=== PATIENT | female | born 1955 | race Two or more races ===

== ENCOUNTER 2016-08-22 11:34 | Inpatient (IN) | payer OTHER ==
[~2016-08-22] VITALS: Ht 157.5 cm; Wt 53.1 kg
--- NOTE | 2016-08-22 11:48 | NUR ---
SENT FROM [employer] FOR DIALYSIS CATHETER MALFUNCTION. PATIENT IS AAO2, APPEARS IN NO APPARENT DISTRESS,HD CATH IS COVERED WITH DD
--- NOTE | 2016-08-22 11:55 | NUR ---
PAGED DR PATTI SINGH
--- NOTE | 2016-08-22 11:57 | NUR ---
DR COLE ON THE PHONE WITH DR PATTI SINGH.
[2016-08-22 12:23] LABS: BASOPHILS # (AUTO) 0.1 /CMM (0.0-0.2); EOSINOPHILS # (AUTO) 0.3 /CMM (0.0-0.7); HEMATOCRIT 34 % (33-45); HEMOGLOBIN 10.9 g/dL (11.5-14.8); LYMPHOCYTES # (AUTO) 1.5 /CMM (0.8-4.8); LYMPHOCYTES % (AUTO) 18.1 % (20.0-44.0); MEAN CORPUSCULAR HEMOGLOBIN 26 PG (26.0-33.0); MEAN CORPUSCULAR HGB CONC 32 g/dl (31.0-36.0); MEAN CORPUSCULAR VOLUME 82 fL (82-100); MONOCYTES # (AUTO) 0.6 /CMM (0.1-1.30); MONOCYTES % (AUTO) 6.8 % (2.0-12.0); NEUTROPHILS # (AUTO) 6.1 /CMM (1.8-8.9); NEUTROPHILS % (AUTO) 70.1 % (43.0-81.0); PLATELET COUNT (AUTO) 294 /CMM (150-450); RDW COEFFICIENT OF VARIATION 16.9 (11.5-15.0); RED BLOOD CELL COUNT(AUTO) 4.13 MIL/uL (4.0-5.2); WHITE BLOOD COUNT (AUTO) 8.6 K/uL (4.3-11.0)
[2016-08-22 12:33] LABS: CALCIUM, SERUM 9.2 mg/dL (8.5-10.1); CREATININE 5.6 mg/dL (0.6-1.3); POTASSIUM 4.9 mmol/L (3.5-5.1)
[2016-08-22 13:04] LABS: INR 0.97 (0.87-1.13); PARTIAL THROMBOPLASTIN TIME < 20 SEC (23-34); PROTHROMBIN TIME 10.4 SECS (9.5-12.7)
[2016-08-22] MEDS ORDERED: CLON0.2T PO (13:16)
[2016-08-22] MEDS ORDERED: ASPI325T2 PO (13:16)
[2016-08-22] MEDS ORDERED: FURO40TA5 PO (13:16)
[2016-08-22] MEDS ORDERED: CLOP75TA2 PO (13:16)
[2016-08-22] MEDS ORDERED: CARV12.52 PO (13:16)
[2016-08-22] MEDS ORDERED: PENT400T2 PO (13:16)
[2016-08-22] MEDS ORDERED: ATOR40TA PO (13:16)
[2016-08-22] MEDS ORDERED: INSU100V7 SQ (13:16)
[2016-08-22] MEDS ORDERED: AMLO10TA2 PO (13:16)
[2016-08-22] MEDS ORDERED: NIFE10CA2 PO (13:16)
[2016-08-22] MEDS ORDERED: FERR-58 PO (13:16)
[2016-08-22] MEDS ORDERED: ERGO500047 PO (13:20)
--- NOTE | 2016-08-22 14:31 | NUR ---
REPORT GIVEN TO NURSE FERNANDES FOR JOO
--- NOTE | 2016-08-22 14:37 | NUR ---
PT TRASNPORTED TO 3W
[2016-08-22 14:50] VITALS: BP 147/77
--- NOTE | 2016-08-22 14:50 | NUR ---
RN INITIAL NOTE PATIENT RECEIVED FROM ER. NO SOB OR DISTRESS NOTED A THIS TIME. PATIENT DENIES PAIN. VITAL SIGNS CHECKED AND RECORDED. PATIENT ORIENTED TO ROOM AND CALL LIGHT. BELONGINGS LIST CHECKED. WILL CALL DR SINGH FOR ORDERS.
--- NOTE | 2016-08-22 15:07 | NUR ---
MS RN NOTES DR SINGH RELAYED VERBAL ORDERS VIA PHONE. HE ASKS TO CONTINUE ALL MEDS ACCEPT ASPIRIN AND PLAVIX. ALL ORDERS PLACED AND MED LIST FAXED TO PHARMACY.
[2016-08-22] MEDS ORDERED: DEXTROSE 50%-WATER 50 ML DISP.SYRIN IV PRN (15:30)
[2016-08-22 16:00] VITALS: BP 134/86
--- NOTE | 2016-08-22 17:16 | NUR ---
MS RN NOTES VERIFIED WITH MADHAVI THAT PHARMACY RECEIVED MED RECON.
[2016-08-22] MEDS: INSULIN REGULAR, HUMAN 100 UNIT/ML 3 ML VIAL SQ PRN ×2 (17:21→21:20)
[2016-08-22] MEDS: BLOOD SUGAR DIAGNOSTIC 1 EACH STRIP IN SCH ×2 (17:21→21:19)
--- NOTE | 2016-08-22 18:16 | NUR ---
MS RN CLOSING NOTES NO SIGNIFICANT CHANGES IN PATIENT CONDITION. PATIENT RESTING COMFORTABLY IN BED. NO SOB OR DISTRESS NOTED AT THIS TIME. PATIENT DENIES PAIN. BED IN A LOW POSITION, CALL LIGHT WITHIN PATIENT REACH. WILL ENDORSE FOR JOO.
--- NOTE | 2016-08-22 19:45 | NUR ---
MS RN NOTE RECEIVED PATIENT FROM DAY SHIFT, PATIENT IS ALERT AND ORIENTEDX4, AMBULATORY WITH ASSIST, SLEEPING COMFORTABLY ON BED AT THIS TIME. RIGHT UPPER ARM MIDLINE IS PATENT AND INTACT, HL ONLY. PATIENT DENIES RESPIRATORY DISTRESS OR PAIN AT THIS TIME. SRX2, BED IN LOW POSITION, CALL LIGHT WITHIN REACH, WILL CONTINUE TO MONITOR PATIENT.
[2016-08-22 20:00] VITALS: BP 127/64
[2016-08-22] MEDS ORDERED: ERGOCALCIFEROL (VITAMIN D 2) 50,000 UNIT CAPSULE PO SCH (20:00)
[2016-08-22] MEDS: ATORVASTATIN 40 MG TABLET PO SCH (21:16)
[2016-08-23] MEDS: BLOOD SUGAR DIAGNOSTIC 1 EACH STRIP IN SCH ×4 (05:53→22:09)
--- NOTE | 2016-08-23 06:57 | NUR ---
MS RN NOTE PATIENT IS SLEEPING IN BED COMFORTABLY, NO FACIAL GRIMACE AND NO RESPIRATORY DISTRESS NOTED. MID LINE ON RIGHT UPPER ARM IS PATENT AND INTACT, HL ONLY. WILL ENDORSE TO DAY SHIFT FOR JOO.
--- NOTE | 2016-08-23 07:12 | NUR ---
MS/RN OPENING NOTES: PATIENT RECEIVED IN BED AWAKE, ALERT AND ORIENTED X4. VERBALLY RESPONSIVE, NO C/O PAIN OR DISCOMFORTS AT THIS TIME. ON ROOM AIR, NO ACUTE SIGNS OF DISTRESS NOTED. HEAD OF BED ELEVATED. HAO MIDLINE INTACT AND PATENT. [facility] HD CATH INTACT BUT MALFUNCTION. CALL LIGHT WITHIN PT'S REACH. BED LOCKED AND IN LOWEST POSITION WITH SIDE RAILS UP X2. WILL CONTINUE TO MONITOR PATIENT ACCORDINGLY
[2016-08-23 08:00] VITALS: BP 159/73
[2016-08-23] MEDS: FERROUS SULFATE (325 MG) 325 MG/TAB TABLET PO SCH ×2 (08:46→17:14)
[2016-08-23] MEDS: AMLODIPINE BESYLATE 10 MG TABLET PO SCH (08:47)
[2016-08-23] MEDS: FUROSEMIDE 40 MG TABLET PO SCH (08:47)
[2016-08-23] MEDS: NIFEdipine (10MG) 10 MG CAPSULE PO SCH ×2 (08:47→17:14)
[2016-08-23] MEDS: CARVEDILOL 12.5 MG TABLET PO SCH ×2 (08:47→17:17)
[2016-08-23] MEDS: CLONIDINE HCL 0.1 MG TABLET PO SCH ×3 (08:48→17:14)
[2016-08-23] MEDS: PENTOXIFYLLINE 400 MG TABLET.SA PO SCH (08:50)
--- NOTE | 2016-08-23 10:42 | NUR ---
RN NOTES PATIENT SEEN AND EVALUATED BY DR. Shivani AVILA WITH ORDER TO DO HEMODIALYSIS TODAY USING OLD HD CATHETER ON [facility]. IF IT DOESN'T WORK, SHE WILL ORDER FOR NEW HD CATHETER REPLACEMENT. WILL CONTINUE TO MONITOR
[2016-08-23] MEDS: INSULIN REGULAR, HUMAN 100 UNIT/ML 3 ML VIAL SQ PRN ×3 (13:26→22:16)
--- NOTE | 2016-08-23 13:58 | NUR ---
RN NOTES RECEIVED CALL FROM DR BENSON WITH ORDER TO DO VEIN MAPPING OF B/L UPPER EXTREMITIES. NO IV DRAWN ON LEFT ARM AND TO CALL HIM IF HD CATHETER ON [facility] IS NOT WORKING WHEN DIALYSIS NURSE WILL TRY TO DO HD THIS AFTERNOON.
[2016-08-23 16:00] VITALS: BP 149/81
[2016-08-23] MEDS ORDERED: INSULIN GLARGINE HUM REC ANLOG 25 UNIT SQ SCH (18:00)
--- NOTE | 2016-08-23 19:02 | NUR ---
MS RN CLOSING NOTES PATIENT RESTING IN BED AWAKE IN NO ACUTE SIGNS OF DISTRESS. ALERT AND ORIENTED X4, DENIES ANY PAIN THROUGHOUT THE DAY. NO SIGNIFICANT CHANGES IN PATIENT CONDITION DURING SHIFT. ON ROOM AIR, NO SOB OR DISTRESS NOTED. PATIENT FOR HEMODIALYSIS TODAY, DIALYSIS NURSE CONFIRMED THAT SHE WILL COME AND DO IT THIS EVENING, STILL AWAITING FOR DIALYSIS NURSE. BED IN A LOW POSITION AND LOCKED. CALL LIGHT WITHIN PATIENT REACH. ALL NEEDS AND CARE PROVIDED WELL. DUE MEDS GIVEN ORDERED. WILL ENDORSE FOR JOO.
--- NOTE | 2016-08-23 19:30 | NUR ---
MS RN NOTE RECEIVED PATIENT FROM DAY SHIFT, PATIENT IS ALERT AND ORIENTEDX3, DENIES PAIN OR RESPIRATORY DISTRESS. RIGHT UPPER ARM MID LINE IS PATENT AND INTACT, HL ONLY. PER DAY SHIFT, PATIENT IS STILL WAITING HD NURSE. SRX2, BED IN LOW POSITION, CALL LIGHT WITHIN REACH, WILL CONTINUE TO MONITOR PATIENT.
--- NOTE | 2016-08-23 20:00 | NUR ---
MS RN NOTE HD NURSE IS DOING DIALYSIS, RIGHT CHEST WALL AJ CATH IS WORKING WELL.
[2016-08-23 20:51] VITALS: BP 93/49
[2016-08-23] MEDS: INSULIN DETEMIR 100 UNIT/ML CARTRIDGE SQ SCH (22:00)
[2016-08-23] MEDS: ATORVASTATIN 40 MG TABLET PO SCH (22:09)
--- NOTE | 2016-08-23 22:10 | NUR ---
MS RN NOTE PATIENT'S BS AT 2200 WAS 142MG/DL, 2 UNITS OF CLEAR INSULIN GIVEN BUT LEVEMIR 25UNITS HELD DUE TO RISK OF HYPOGLYCEMIA.
[2016-08-24] MEDS: BLOOD SUGAR DIAGNOSTIC 1 EACH STRIP IN SCH ×4 (05:43→21:06)
[2016-08-24] MEDS: INSULIN REGULAR, HUMAN 100 UNIT/ML 3 ML VIAL SQ PRN ×3 (05:44→21:07)
--- NOTE | 2016-08-24 06:38 | NUR ---
MS RN NOTE PATIENT IS RESTING IN BED COMFORTABLY, HAVING DIALYSIS AT THIS TIME. MID LINE ON RIGHT UPPER ARM IS INTACT. NO ACUTE EVENT NOTED DURING THE DRY PAN CHARGER. WILL ENDORSE TO DAY SHIFT FOR JOO.
--- NOTE | 2016-08-24 07:19 | NUR ---
MS RN OPENING NOTES RECEIVED PT. FROM NIGHTSHIFT NURSE IN STABLE CONDITION. A/O X3. PT. IS LYING COMFORTABLY IN BED RECEIVING HER SCHEDULED DIALYSIS. NO SOB OR ACUTE SIGNS OF DISTRESS NOTED. NO COMPLAINTS OF PAIN AT THIS TIME. RIGHT UPPER ARM MIDLINE IS INTACT AND PATENT. NO REDNESS OR INFILTRATION NOTED. WILL CONTINUE TO MONITOR
[2016-08-24 07:37] LABS: BASOPHILS % (AUTO) 1.1 % (0.0-2.0); EOSINOPHILS # (AUTO) 0.3 /CMM (0.0-0.7); EOSINOPHILS % (AUTO) 7.2 % (0.0-6.0); HEMATOCRIT 25 % (33-45); HEMOGLOBIN 8.2 g/dL (11.5-14.8); LYMPHOCYTES # (AUTO) 1.3 /CMM (0.8-4.8); LYMPHOCYTES % (AUTO) 31.4 % (20.0-44.0); MEAN CORPUSCULAR HEMOGLOBIN 27 PG (26.0-33.0); MEAN CORPUSCULAR HGB CONC 33 g/dl (31.0-36.0); MEAN CORPUSCULAR VOLUME 82 fL (82-100); MONOCYTES # (AUTO) 0.5 /CMM (0.1-1.30); MONOCYTES % (AUTO) 11.7 % (2.0-12.0); NEUTROPHILS % (AUTO) 48.6 % (43.0-81.0); PLATELET COUNT (AUTO) 208 /CMM (150-450); RDW COEFFICIENT OF VARIATION 17.8 (11.5-15.0); RED BLOOD CELL COUNT(AUTO) 3.02 MIL/uL (4.0-5.2); WHITE BLOOD COUNT (AUTO) 4.1 K/uL (4.3-11.0)
[2016-08-24 07:56] LABS: CALCIUM, SERUM 8.1 mg/dL (8.5-10.1); CREATININE 3.5 mg/dL (0.6-1.3); MAGNESIUM 1.8 mg/dL (1.8-2.4); POTASSIUM 3.8 mmol/L (3.5-5.1)
[2016-08-24 08:00] VITALS: BP 100/55
[2016-08-24] MEDS: CLONIDINE HCL 0.1 MG TABLET PO SCH ×3 (08:46→17:59)
[2016-08-24] MEDS: CARVEDILOL 12.5 MG TABLET PO SCH ×2 (08:46→17:00)
[2016-08-24] MEDS: FERROUS SULFATE (325 MG) 325 MG/TAB TABLET PO SCH ×2 (08:47→17:59)
[2016-08-24] MEDS: NIFEdipine (10MG) 10 MG CAPSULE PO SCH ×2 (08:47→18:00)
[2016-08-24] MEDS: AMLODIPINE BESYLATE 10 MG TABLET PO SCH (08:47)
[2016-08-24] MEDS: FUROSEMIDE 40 MG TABLET PO SCH (08:47)
[2016-08-24] MEDS: PENTOXIFYLLINE 400 MG TABLET.SA PO SCH (08:48)
[2016-08-24 16:00] VITALS: BP 120/58
--- NOTE | 2016-08-24 17:50 | NUR ---
MS RN NOTES PT. REFUSED 1700 COREG MEDICATION. STATES SHE HAS TAKEN ENOUGH BLOOD PRESSURE MEDICATIONS. MEDICATION EDUCATION WAS GIVEN. WILL CONTINUE TO MONITOR.
--- NOTE | 2016-08-24 18:46 | NUR ---
MS RN CLOSING NOTES PT. IN STABLE CONDITION RESTING IN BED. ALL NEEDS MET THROUGHOUT SHIFT. ALL ORDERS CARRIED OUT ACCORDINGLY. NO ACUTE CHANGES OR EVENTS OCCURRED DURING SHIFT. WILL ENDORSE TO NIGHTSHIFT NURSE FOR JOO
--- NOTE | 2016-08-24 19:00 | NUR ---
MS RN OPENING NOTES RECEIVED PATIENT IN BED, AWAKE/O X 3, IV SITE INTACT WITH NO S/S OF INFILTRATION NOTED. NO S/S OF BLEEDING NOTED. NO S/S OF DISTRESS, NO CHEST PAIN IN STABLE CONDITION. KEPT CLEAN DRY AND COMFORTABLE. SAFE HAZARD FREE ENVIRONMENT PROVIDED. WILL CONTINUE TO MONITOR PATIENT.
[2016-08-24 20:00] VITALS: BP 83/39
[2016-08-24 20:44] VITALS: BP 89/62
[2016-08-24 20:59] LABS: INR 0.99 (0.87-1.13); PROTHROMBIN TIME 10.6 SECS (9.5-12.7)
[2016-08-24] MEDS: ATORVASTATIN 40 MG TABLET PO SCH (21:06)
[2016-08-24] MEDS: INSULIN DETEMIR 100 UNIT/ML CARTRIDGE SQ SCH (21:07)
--- NOTE | 2016-08-24 21:07 | NUR ---
PATIENTS BLOOD SUGAR IS 177 MG/DL PATIENT REFUSED 25 UNITS OF LEVEMIR AND 3 UNITS OF REGULAR INSULIN DESPITE RISKS AND BENEFITS OFFERED 3 X MD AWARE AND FAMILY PATIENT EATING SNACKS FOR PM AND HAS A JUICE A BEDSIDE. HEALTH EDUCATION PROVIDED. PATIENT HAS A SURGERY FOR TOMORROW. 08/25
[2016-08-25] VITALS (7 sets, daily range): BP systolic 124–153; BP diastolic 55–70
[2016-08-25] MEDS: BLOOD SUGAR DIAGNOSTIC 1 EACH STRIP IN SCH ×4 (05:18→22:37)
[2016-08-25] MEDS: INSULIN REGULAR, HUMAN 100 UNIT/ML 3 ML VIAL SQ PRN ×4 (05:19→22:36)
--- NOTE | 2016-08-25 06:37 | NUR ---
MS RN CLOSING NOTES IN BED ASLEEP AND EASILY AWAKEN, SEMI FOWLERS POSITION, SKIN WARM AND DRY TO TOUCH, AFEBRILE, ALL NURSING CARE NEEDS PROVIDED AND RENDERED, NEEDS ATTENDED AND ANTICIPATED, KEPT CLEAN AND DRY AND COMFORTABLE, BLADDER NOT DISTENDED, CONTINUE WITH CURRENT MEDICATION ORDERED, MAINTAINS NPO AT MIDNIGHT. SURGERY FOR TODAY, CALLED SON TO RELAY TIME OF SURGERY, VERBALIZED UNDERSTANDING. NO LATE ADVERSE REACTION NOTED/REPORTED. COOPERATIVE TO HER PLAN OF CARE. SAFE HAZARD FREE ENVIRONMENT MAINTAINED. ASSISTED REPOSITIONED EVERY 2 HOURS FOR SKIN MANAGEMENT AND COMFORT. GOOD SKIN CARE PROVIDED. ALL DUE MEDS WAS GIVEN. KEPT AT LOW BED. FREQUENT VISUAL CHECK FOR SAFETY. PLAN OF CARE ORDERED. CALL LIGHT ATTENDED PROMPTLY AND KEPT AT EASY REACH. WILL ENDORSE TO THE NEXT SHIFT CONTINUE PLAN OF CARE. NO S/S OF HYPO/HYPERGLYCEMIA.
--- NOTE | 2016-08-25 07:30 | NUR ---
AM RN NOTE Received patient sleeping comfortably in her bed, arouses upon touch. Resp even and non-labored. IV site intact and patent. Bed in low locked position. Surgery today for HD cath. Patient on NPO status. Will continue to monitor.
[2016-08-25] MEDS ORDERED: LIDOCAINE 1% INJ 50 ML MDV IJ ONE (07:36)
[2016-08-25] MEDS ORDERED: GELATIN SPONGE,ABSORBABLE 1 EA SPONGE TP ONE (07:36)
[2016-08-25] MEDS ORDERED: BUPIVACAINE 0.5 % PF 150 MG/30 ML VIAL ONE (07:36)
[2016-08-25] MEDS ORDERED: THROMBIN (BOVINE) 5,000 UNITS VIAL TP ONE (07:37)
[2016-08-25] MEDS ORDERED: GENTAMICIN 80 MG/2 ML VIAL ONE (07:37)
[2016-08-25] MEDS ORDERED: BACITRACIN 50000 UNITS/VIAL ONE (07:37)
[2016-08-25] MEDS ORDERED: FENTANYL PF 100MCG/2ML AMPUL ONE ×2 (07:45→09:09)
[2016-08-25 07:46] LABS: EOSINOPHILS # (AUTO) 0.3 /CMM (0.0-0.7); EOSINOPHILS % (AUTO) 6.5 % (0.0-6.0); HEMATOCRIT 27 % (33-45); HEMOGLOBIN 8.9 g/dL (11.5-14.8); LYMPHOCYTES # (AUTO) 1.1 /CMM (0.8-4.8); MEAN CORPUSCULAR HEMOGLOBIN 27 PG (26.0-33.0); MEAN CORPUSCULAR HGB CONC 32 g/dl (31.0-36.0); MEAN CORPUSCULAR VOLUME 82 fL (82-100); MONOCYTES # (AUTO) 0.6 /CMM (0.1-1.30); NEUTROPHILS # (AUTO) 2.8 /CMM (1.8-8.9); NEUTROPHILS % (AUTO) 58.5 % (43.0-81.0); PLATELET COUNT (AUTO) 213 /CMM (150-450); RDW COEFFICIENT OF VARIATION 17.7 (11.5-15.0); RED BLOOD CELL COUNT(AUTO) 3.32 MIL/uL (4.0-5.2); WHITE BLOOD COUNT (AUTO) 4.8 K/uL (4.3-11.0)
--- NOTE | 2016-08-25 07:50 | NUR ---
AM RN NOTE Patient awake, left for surgery (HD cath) at this time as accompanied by OR staff.
[2016-08-25] MEDS ORDERED: MIDAZOLAM HCL 2 MG/2ML VIAL ONE (07:56)
[2016-08-25 08:05] LABS: CALCIUM, SERUM 8.9 mg/dL (8.5-10.1); CREATININE 4.2 mg/dL (0.6-1.3); MAGNESIUM 1.9 mg/dL (1.8-2.4); PHOSPHORUS 4.3 mg/dL (2.5-4.9); POTASSIUM 4.2 mmol/L (3.5-5.1)
[2016-08-25] MEDS ORDERED: HEPARIN SODIUM, PORCINE 1,000 UNIT/ML VIAL ONE (08:31)
[2016-08-25] MEDS: CARVEDILOL 12.5 MG TABLET PO SCH ×2 (09:00→16:31)
[2016-08-25] MEDS: PENTOXIFYLLINE 400 MG TABLET.SA PO SCH (09:00)
[2016-08-25] MEDS: CLONIDINE HCL 0.1 MG TABLET PO SCH ×3 (09:00→16:31)
[2016-08-25] MEDS: AMLODIPINE BESYLATE 10 MG TABLET PO SCH (09:00)
[2016-08-25] MEDS: FERROUS SULFATE (325 MG) 325 MG/TAB TABLET PO SCH ×2 (09:00→16:31)
[2016-08-25] MEDS: FUROSEMIDE 40 MG TABLET PO SCH (09:00)
[2016-08-25] MEDS: NIFEdipine (10MG) 10 MG CAPSULE PO SCH (09:00)
[2016-08-25] MEDS ORDERED: EPHEDRINE SULFATE IV 50MG VIAL ONE (09:08)
--- NOTE | 2016-08-25 10:30 | NUR ---
AM RN NOTE Received patient from OR A/O X3 verbally responsive. Denies any pain at this time. Left arteriovenous access creation covered with dressing, intact. Right SC red port attached to IV fluids. Midline on HAO intact and able to flush without any problem. New orders given by Dr. Jung noted and carried out. Diet ordered. Will continue to monitor.
[2016-08-25] MEDS ORDERED: HEPARIN-LOCK FLUSH PORCINE PF 100 UNITS/1 ML (10 ML)DISP.SYRIN IVF ONE (11:00)
[2016-08-25] MEDS ORDERED: CLONIDINE HCL 0.1 MG TABLET PO SCH (13:00)
--- NOTE | 2016-08-25 18:33 | NUR ---
AM RN NOTE Patient lying in her bed, denies any pain or discomfort at this time. RSC Cath and midline on HAO intact. Left AV fistula covered with dressing, intact and bruit present. Visited by family. Will endorsed care to next shift. Call light with in reach.
[2016-08-25] MEDS: ATORVASTATIN 40 MG TABLET PO SCH (22:33)
[2016-08-25] MEDS: INSULIN DETEMIR 100 UNIT/ML CARTRIDGE SQ SCH (22:37)
--- NOTE | 2016-08-26 00:42 | NUR ---
RN NOTES: PATIENT IS COMPLAINING THAT SHE HAD PALPITATION THREE TIMES. DENIES ANY CHEST PAIN , PATIENT'S BLOOD PRESSURE IS 130/66 MMHG. HR: 74 BPM. RR:22. O2 SAT :95 %. NP. TRENT IS CALLED AND NOTIFIED AND ORDERED EKG STAT ORDER. WILL CARRY THE ORDER AND FOLLOW UP .
--- NOTE | 2016-08-26 04:14 | NUR ---
RN NOTES: SPOKE TO NP. TRENT AND NOTIFIED ABOUT THE RESULTS OF EKG, HE ORDERED TROPONIN TEST WITH AM LABS. WILL CARRY OUT THE ORDER AND CONTINUE TO FOLLOW UP.
--- NOTE | 2016-08-26 07:32 | NUR ---
AM RN NOTE Received patient sleeping comfortably in her bed, arouses upon touch. No SOB noted resp even and non-labored. RSC Cath and midline on HAO intact. Left AV fistula covered with dressing, intact and bruit present. Bed in low locked position. Call light with in reach.
[2016-08-26 08:00] VITALS: BP 147/67
[2016-08-26] MEDS: BLOOD SUGAR DIAGNOSTIC 1 EACH STRIP IN SCH ×4 (08:12→21:09)
[2016-08-26] MEDS: FERROUS SULFATE (325 MG) 325 MG/TAB TABLET PO SCH ×2 (08:13→16:42)
[2016-08-26] MEDS: FUROSEMIDE 40 MG TABLET PO SCH (08:13)
[2016-08-26] MEDS: PENTOXIFYLLINE 400 MG TABLET.SA PO SCH (08:13)
[2016-08-26] MEDS: AMLODIPINE BESYLATE 10 MG TABLET PO SCH (08:16)
[2016-08-26] MEDS: CARVEDILOL 12.5 MG TABLET PO SCH ×2 (08:16→16:43)
[2016-08-26] MEDS: CLONIDINE HCL 0.1 MG TABLET PO SCH ×3 (08:17→16:43)
[2016-08-26] MEDS: INSULIN REGULAR, HUMAN 100 UNIT/ML 3 ML VIAL SQ PRN ×3 (12:48→21:13)
--- NOTE | 2016-08-26 14:23 | NUR ---
AM RN NOTE Called exchange x2 and oncall is to notify Troponin results. Left msg for MD to call back, no call back received. Placed another order for Troponin lab per CN (Fe). Patient awake, denies any pain or discomfort at this time. Dialysis done with output 1500ml.
--- NOTE | 2016-08-26 14:43 | NUR ---
AM RN NOTE Received call from Dr. Casas with new order to ok to repeat troponin and Manager Post consult.
[2016-08-26 16:00] VITALS: BP 130/57
--- NOTE | 2016-08-26 18:35 | NUR ---
AM RN NOTE Patient lying in her bed, denies any chest pain or discomfort at this time. Echo done results pending. Will endorse care to next shift.
--- NOTE | 2016-08-26 19:30 | NUR ---
MS RN INITIAL NOTE RECEIVED PT AWAKE AND ALERT, NO COMPLAINT OF PAIN OR RESPIRATORY DISTRESS OR CHEST PAIN NOTED DURING PHYSICAL ASSESSMENT, PT IS CLEAN/DRY AND COMFORTABLE, SAFETY MEASURES WILL BE MAINTAINED AT ALL TIMES, WILL ATTEND TO NEEDS PROMPTLY DURING HOURLY ROUNDS OR NEEDED.
[2016-08-26 20:00] VITALS: BP 114/50
[2016-08-26] MEDS: ATORVASTATIN 40 MG TABLET PO SCH (21:10)
[2016-08-26] MEDS: INSULIN DETEMIR 100 UNIT/ML CARTRIDGE SQ SCH (21:13)
[2016-08-27] MEDS: BLOOD SUGAR DIAGNOSTIC 1 EACH STRIP IN SCH ×4 (07:30→22:16)
--- NOTE | 2016-08-27 07:30 | NUR ---
AM RN NOTE Received patient awake, A/O X3 verbally responsive. No SOB noted resp even and non-labored. Deneis any pain or discomfort at this time. RSC Cath and midline on HAO intact. Left AV fistula covered with dressing, intact and bruit present. Bed in low locked position. Call light with in reach.
--- NOTE | 2016-08-27 07:55 | NUR ---
MS CLOSING NOTE PT IS STABLE AND COMFORTABLE, NO SIGNIFICANT CHANGES OBSERVED DURING NIGHT, ALL NEEDS WERE MET, WILL ENDORSE TO INCOMING NURSE FOR JOO.
[2016-08-27 08:00] VITALS: BP 149/55
[2016-08-27] MEDS: PENTOXIFYLLINE 400 MG TABLET.SA PO SCH (08:38)
[2016-08-27] MEDS: FUROSEMIDE 40 MG TABLET PO SCH (08:38)
[2016-08-27] MEDS: CLONIDINE HCL 0.1 MG TABLET PO SCH ×3 (08:38→17:16)
[2016-08-27] MEDS: FERROUS SULFATE (325 MG) 325 MG/TAB TABLET PO SCH ×2 (08:38→17:16)
[2016-08-27] MEDS: CARVEDILOL 12.5 MG TABLET PO SCH ×2 (08:39→17:16)
[2016-08-27] MEDS: AMLODIPINE BESYLATE 10 MG TABLET PO SCH (08:39)
[2016-08-27] MEDS: INSULIN REGULAR, HUMAN 100 UNIT/ML 3 ML VIAL SQ PRN ×3 (12:16→22:36)
[2016-08-27] MEDS: ASPIRIN 81 MG TAB.CHEW PO SCH (12:17)
--- NOTE | 2016-08-27 14:30 | NUR ---
AM RN NOTE Patient A/O X3, Consent for Lexiscan signed by patient. Son (Stephen) also made aware and agreed for procedure.
[2016-08-27 16:00] VITALS: BP 125/56
--- NOTE | 2016-08-27 18:47 | NUR ---
AM RN NOTE Patient lying in her bed, denies any pain or discomfort at this time. On NPO status for hananean tomorrow. Will endorse care to next shift.
--- NOTE | 2016-08-27 19:30 | NUR ---
MS RN INITIAL NOTE RECEIVED PT AWAKE AND ALERT ORIENTED X2, NO PAIN OR RESPIRATORY DISTRESS NOTED DURING PHYSICAL ASSESSMENT, PT IS AWARE THAT SHE WILL UNDER GO LEXISCAN TOMORROW MORNING AND THAT SHE MUST REMAIN NPO AFTER MIDNIGHT, WILL CONTINUE TO MONITOR CLOSELY.
[2016-08-27 20:00] VITALS: BP 133/52
[2016-08-27] MEDS: INSULIN DETEMIR 100 UNIT/ML CARTRIDGE SQ SCH (22:00)
[2016-08-27] MEDS: ATORVASTATIN 40 MG TABLET PO SCH (22:16)
--- NOTE | 2016-08-27 22:30 | NUR ---
PT BS IS 248, PT IS TO BE NPO AFTER MIDNIGHT DUE SCHEDULE LILLIEISCAN THIS AM, PT IS DUE FOR LEVEMIR AND REGULAR INSULIN PER SLIDING SCALE, PROFESSIONAL FIGHTER PADDY TRENT ORDER TO PROVIDE 4 UNITS OF REGULAR INSULIN PER SLIDING SCALE, BUT LEVEMIR IS TO BE HELD, WILL CONTINUE TO MONITOR CLOSELY.
[2016-08-28] MEDS: BLOOD SUGAR DIAGNOSTIC 1 EACH STRIP IN SCH ×4 (06:32→21:22)
--- NOTE | 2016-08-28 06:40 | NUR ---
MS RN CLOSING NOTE PT REMAINED STABLE DURING TEACHER ADVENTURE EDUCATION, NO SIGNIFICANT CHANGES IN CONDITION NOTED, PT AWARE OF LEXISCAN SCHEDULE THIS AM, PT REMAINED NPO AFTER MIDNIGHT, NO COMPLAINT OF PAIN OR RESPIRATORY DISTRESS NOTED, CLEAN/DRY AND COMFORTABLE, SAFETY MEASURES WERE MAINTAINED AT ALL TIMES, WILL ENDORSE TO INCOMING NURSE FOR JOO.
[2016-08-28 07:45] LABS: BASOPHILS % (AUTO) 0.8 % (0.0-2.0); EOSINOPHILS # (AUTO) 0.3 /CMM (0.0-0.7); EOSINOPHILS % (AUTO) 6.4 % (0.0-6.0); HEMATOCRIT 27 % (33-45); LYMPHOCYTES # (AUTO) 1.5 /CMM (0.8-4.8); MEAN CORPUSCULAR HEMOGLOBIN 27 PG (26.0-33.0); MEAN CORPUSCULAR HGB CONC 33 g/dl (31.0-36.0); MEAN CORPUSCULAR VOLUME 82 fL (82-100); MONOCYTES # (AUTO) 0.6 /CMM (0.1-1.30); MONOCYTES % (AUTO) 11.5 % (2.0-12.0); NEUTROPHILS # (AUTO) 2.5 /CMM (1.8-8.9); NEUTROPHILS % (AUTO) 51.3 % (43.0-81.0); PLATELET COUNT (AUTO) 226 /CMM (150-450); RDW COEFFICIENT OF VARIATION 17.5 (11.5-15.0); RED BLOOD CELL COUNT(AUTO) 3.31 MIL/uL (4.0-5.2); WHITE BLOOD COUNT (AUTO) 4.9 K/uL (4.3-11.0)
[2016-08-28 08:00] VITALS: BP 152/58
[2016-08-28] MEDS ORDERED: REGADENOSON 0.4 MG/5 ML DISP.SYRIN IVP ONE (08:00)
[2016-08-28 08:04] LABS: CALCIUM, SERUM 9.3 mg/dL (8.5-10.1); CREATININE 3.1 mg/dL (0.6-1.3); MAGNESIUM 1.6 mg/dL (1.8-2.4); PHOSPHORUS 3.6 mg/dL (2.5-4.9)
[2016-08-28] MEDS: AMLODIPINE BESYLATE 10 MG TABLET PO SCH (09:48)
[2016-08-28] MEDS: FERROUS SULFATE (325 MG) 325 MG/TAB TABLET PO SCH ×2 (09:48→17:26)
[2016-08-28] MEDS: PENTOXIFYLLINE 400 MG TABLET.SA PO SCH (09:49)
[2016-08-28] MEDS: FUROSEMIDE 40 MG TABLET PO SCH (09:49)
[2016-08-28] MEDS: CARVEDILOL 12.5 MG TABLET PO SCH ×2 (09:49→17:26)
[2016-08-28] MEDS: ASPIRIN 81 MG TAB.CHEW PO SCH (09:49)
[2016-08-28] MEDS: CLONIDINE HCL 0.1 MG TABLET PO SCH ×3 (09:49→17:28)
[2016-08-28] MEDS ORDERED: EPOETIN ALFA (10,000 UNIT) 10,000 UNIT/ML VIAL IV ONE (12:00)
--- NOTE | 2016-08-28 12:30 | NUR ---
INSULIN REFUSED FOR AV=127 BECAUSE PATIENT DID NOT WANT TO TAKE INSULIN WITHOUT EATING LUNCH. WILL CONTINUE TO MONITOR.
--- NOTE | 2016-08-28 13:52 | NUR ---
HOLDING MEDS UNTIL AFTER DIALYSIS, DIALYSIS NURSE ARRIVED JUST NOW TO BEGIN TREATMENT. WILL CONTINUE TO MONITOR AND FOLLOW UP LATER.
[2016-08-28 16:00] VITALS: BP 114/51
[2016-08-28] MEDS: INSULIN REGULAR, HUMAN 100 UNIT/ML 3 ML VIAL SQ PRN ×2 (17:43→21:33)
--- NOTE | 2016-08-28 19:04 | NUR ---
RN PM NOTES ADMINISTERED MEDICATIONS ORDERED AFTER HEMODIALYSIS. GAVE PATIENT TRAY REQUESTED FOR DINNER WITH FOOD PREFERENCES. PATIENT IN BED RESTING, EASILY AROUSABLE WITH NO COMPLAINTS OF CRAMPING, PAIN OR BLEEDING. HEMODIALYSIS WITH 1 L OF FLUID OUT. PATIENT IN STABLE CONDITION, WILL ENDORSE TO NEXT SHIFT.
--- NOTE | 2016-08-28 19:30 | NUR ---
MS RN INITIAL NOTE RECEIVED PT AWAKE AND ALERT, NO COMPLAINT OF PAIN OR RESPIRATORY DISTRESS NOTED DURING PHYSICAL ASSESSMENT, FAMILY CURRENTLY AT BEDSIDE, PT IS STABLE AND COMFORTABLE, WILL MAINTAIN SAFETY MEASURES AT ALL TIMES, NEEDS WILL BE ANTICIPATED AND ATTENDED TO PROMPTLY.
[2016-08-28 20:00] VITALS: BP 135/60
[2016-08-28 20:38] VITALS: BP 135/60
[2016-08-28] MEDS: INSULIN DETEMIR 100 UNIT/ML CARTRIDGE SQ SCH (21:36)
[2016-08-28] MEDS: ATORVASTATIN 40 MG TABLET PO SCH (21:38)
--- NOTE | 2016-08-28 22:21 | NUR ---
REPORT GIVEN TO SIENNA VINCENT, PT IS CURRENTLY SLEEPING, STABLE AND COMFORTABLE, NO SIGNS OF PAIN OR RESPIRATORY DISTRESS NOTED, ENDORSED FOR JOO.
--- NOTE | 2016-08-28 22:30 | NUR ---
MS/RN NOTES RECEIVED PT ASLEEP, BREATHING EVEN AND UNLABORED ON ROOM AIR. NO S/S OF PAIN OR DISTRESS NOTED. HAO MIDLINE PATENT AND INTACT. LEFT AV SHUNT NOTED. PT HAD DIALYSIS TODAY WITH 1L OUT. BED IN LOW/LOCKED POSITION WITH CALL LIGHT IN REACH. BED RAILS UPX2. WILL CONTINUE TO MONITOR
--- NOTE | 2016-08-29 03:00 | NUR ---
MS/RN NOTES PT AWAKE, WARM BLANKET PROVIDED. NO OTHERS NEEDS REQUESTED AT THIS TIME. MADE PT COMFORTABLE AND PT FELL BACK ASLEEP. WILL CONTINUE TO MONITOR
[2016-08-29] MEDS: BLOOD SUGAR DIAGNOSTIC 1 EACH STRIP IN SCH ×2 (06:33→11:51)
[2016-08-29] MEDS: INSULIN REGULAR, HUMAN 100 UNIT/ML 3 ML VIAL SQ PRN ×2 (06:34→12:11)
--- NOTE | 2016-08-29 06:34 | NUR ---
MS/RN NOTES BLOOD SUGAR=96. NO INSULIN ADMINISTERED PER SLIDING SCALE.
--- NOTE | 2016-08-29 06:48 | NUR ---
MS/RN CLOSING NOTES PT ASLEEP, EASILY AROUSABLE TO NAME. A/OX3, BELARUSIAN SPEAKING. ON ROOM AIR WITH NO SOB OR DISTRESS NOTED. NO COMPLAINTS OF PAIN THROUGHOUT SHIFT. IV TO HAO MIDLINE PATENT AND INTACT. NO INSULIN COVERAGE THIS AM. PT MADE COMFORTABLE THROUGHOUT SHIFT, ALL NEEDS MET AND ATTENDED TO. BED IN LOW/LOCKED POSITION WITH CALL LIGHT IN REACH. BED RAILS UPX2. NO CHANGES OVERNIGHT. WILL ENDORSE TO DAY SHIFT RN FOR JOO.
--- NOTE | 2016-08-29 07:32 | NUR ---
MS RN OPENING RECEIVED PATIENT AWAKE A/OX3 DENIES PAIN, SOB, DIFFICULTY BREATHING AT THIS TIME. PATIENT STATES NO NEEDS AT THIS TIME AND APPEARS STABLE. WILL ROUND Q2H OR LESS PER NEEDS. CALL LIGHT IN REACH, BED LOWERED AND LOCKED, RAILS UPX3 FOR SAFETY
[2016-08-29 08:00] VITALS: BP 123/52
[2016-08-29 08:40] VITALS: BP 140/58
[2016-08-29] MEDS: AMLODIPINE BESYLATE 10 MG TABLET PO SCH (08:47)
[2016-08-29] MEDS: ASPIRIN 81 MG TAB.CHEW PO SCH (08:47)
[2016-08-29] MEDS: PENTOXIFYLLINE 400 MG TABLET.SA PO SCH (08:48)
[2016-08-29] MEDS: FUROSEMIDE 40 MG TABLET PO SCH (08:48)
[2016-08-29] MEDS: FERROUS SULFATE (325 MG) 325 MG/TAB TABLET PO SCH (08:48)
[2016-08-29] MEDS: CARVEDILOL 12.5 MG TABLET PO SCH (08:50)
[2016-08-29] MEDS: CLONIDINE HCL 0.1 MG TABLET PO SCH ×2 (09:58→12:06)
[2016-08-29 12:00] VITALS: BP 138/63
[2016-08-29 12:06] VITALS: BP 138/63
[2016-08-29] MEDS ORDERED: ASPI81TA2 PO (12:18)
[2016-08-29] MEDS ORDERED: INSU100V28 SQ (12:18)
[2016-08-29] MEDS ORDERED: Blood Sugar Diagnostic IN (12:18)
[2016-08-29] MEDS ORDERED: ERGOCALCIFEROL (VITAMIN D 2) 50,000 UNIT CAPSULE PO SCH (13:00)
--- NOTE | 2016-08-29 13:14 | NUR ---
MS RN NOTES CALLED [facility] AND REPORT GIVEN TO PEGGY VINCENT AND NOTIFIED SUKI CHANEL OF DISCHARGE.
--- NOTE | 2016-08-29 13:48 | NUR ---
MS RN NOTES PATIENT MIDLINE REMOVED PRESSURE AND DRESSING APPLIED NO BLEEDING NOTED. PATIENT BELONGINGS ALL ACCOUNTED FOR AND SIGNED. PATIENT EDUCATED WITH ITALIAN TRANSLATION AND PATIENT STATED DC MATERIAL AND SIGNED DC PAPERWORK. PATIENT ASSISTED WITH GETTING READY FOR DISCHARGE.
--- NOTE | 2016-08-29 14:11 | NUR ---
MS CLEAT THROWER PATIENT ASSISTED TO [facility] BY EMT STAFF. PATIENT LEFT IN STABLE CONDITION NO COMPLICATIONS. JOO TRANSFERRED TO EMT STAFF.
== END 2016-08-29 14:15 | DRG 444 ==
LOC: ER 11:47 → MED 13:46
PROVIDERS: ADMIT Internal Medicine Nephrology; ATTEND Internal Medicine Nephrology
PROC: 5A1D60Z (ICD-10-PCS; principal; 2016-08-23)
PROC: 03180ZD Bypass Left Brachial Artery to Upper Arm Vein, Open Approach (ICD-10-PCS; 2016-08-25)
DX: T82.41XA Breakdown (mechanical) of vascular dialysis catheter, initial encounter (principal); I21.4 Non-ST elevation (NSTEMI) myocardial infarction; I12.0 Hypertensive chronic kidney disease with stage 5 chronic kidney disease or end stage renal disease; N18.6 End stage renal disease; E11.22 Type 2 diabetes mellitus with diabetic chronic kidney disease; E83.9 Disorder of mineral metabolism, unspecified; Y92.009 Unspecified place in unspecified non-institutional (private) residence as the place of occurrence of the external cause; Z99.2 Dependence on renal dialysis; I51.7 Cardiomegaly; D64.9 Anemia, unspecified; Y71.2 Prosthetic and other implants, materials and accessory cardiovascular devices associated with adverse incidents; Z79.899 Other long term (current) drug therapy; Y83.9 Surgical procedure, unspecified as the cause of abnormal reaction of the patient, or of later complication, without mention of misadventure at the time of the procedure; Y73.8 Miscellaneous gastroenterology and urology devices associated with adverse incidents, not elsewhere classified
CPT/HCPCS: 36415; 36569; 71010-TC; 80048-TC; 82962-TC; 83735-TC; 84100-TC; 84484-TC; 85025-TC; 85610-TC; 85730-TC; 86850-TC; 87081-TC; 90935-TC; 93307-TC; 97001-TC; A4606; A6402; A6403; A9502; C1769; J0690; J0885; J1580; J1642; J1644; J1815; J2250; J2704; J2785; J3010; J3490; Z7610

== ENCOUNTER 2017-08-27 09:04 | Inpatient (IN) | payer MEDICARE, OTHER ==
[~2017-08-27] VITALS: Ht 154.9 cm; Wt 71.7 kg
[~2017-08-27 09:04] MED LIST: AMLO10TA6 PO; ASPI-1169 PO; ATOR40TA PO; Blood Sugar Diagnostic IN; CARV12.52 PO; CLON0.2T PO; ERGO500040 PO; FERR325T24 PO; FURO40TA5 PO; INSU100V28 SQ; INSU100V7 SQ; PENT400T12 PO
--- NOTE | 2017-08-27 09:09 | NUR ---
[id number] FROM [facility]: ALMANJULA RAUL 0840AM. BS IN FIELD 140. PT LEGS ARE COVERED IN STOOL. PT CLEANED AND GOWNED. APPIED DIAPER. PLACED ON CONT CARDIAC AND POX MONITOR. ALL NEEDS ARE ATTENDED. AFEBERILE VSS
[2017-08-27] MEDS ORDERED: IV NS 0.9% 1,000 ML BAG IV ONE (09:30)
[2017-08-27 09:33] LABS: BASOPHILS % (AUTO) 0.2 % (0.0-2.0); EOSINOPHILS % (AUTO) 0.6 % (0.0-6.0); HEMATOCRIT 37 % (33-45); HEMOGLOBIN 12.7 g/dL (11.5-14.8); LYMPHOCYTES % (AUTO) 10.5 % (20.0-44.0); MEAN CORPUSCULAR HGB CONC 35 g/dl (31.0-36.0); MEAN CORPUSCULAR VOLUME 91 fL (82-100); MONOCYTES # (AUTO) 0.8 /CMM (0.1-1.30); MONOCYTES % (AUTO) 7.9 % (2.0-12.0); NEUTROPHILS # (AUTO) 7.9 /CMM (1.8-8.9); NEUTROPHILS % (AUTO) 80.8 % (43.0-81.0); PLATELET COUNT (AUTO) 257 /CMM (150-450); RDW COEFFICIENT OF VARIATION 14.3 (11.5-15.0); RED BLOOD CELL COUNT(AUTO) 4.04 MIL/uL (4.0-5.2); WHITE BLOOD COUNT (AUTO) 9.8 K/uL (4.3-11.0)
[2017-08-27 09:46] LABS: CALCIUM, SERUM 9.6 mg/dL (8.5-10.1); CARBON DIOXIDE 31 mmol/L (21-32); CHLORIDE 98 mmol/L (98-107); CREATININE 4.9 mg/dL (0.6-1.3); GLUCOSE 256 mg/dL (74-106); POTASSIUM 4.4 mmol/L (3.5-5.1); SODIUM SERUM 138 mmol/L (136-145); UREA NITROGEN, BLOOD 49 mg/dL (7-18)
[2017-08-27 09:49] LABS: INR 0.96 (0.87-1.13)
[2017-08-27 09:51] LABS: ALANINE AMINOTRANSFERASE 20 U/L (12-78); ALBUMIN 3.2 g/dL (3.4-5.0); ALKALINE PHOSPHATASE 177 U/L (46-116); ASPARTATE AMINOTRANSFERASE 15 U/L (15-37); BILIRUBIN,DIRECT 0.1 mg/dL (0.0-0.2); BILIRUBIN,TOTAL 0.8 mg/dL (0.2-1.0); TOTAL PROTEIN, SERUM 8.3 g/dL (6.4-8.2)
[2017-08-27] MEDS ORDERED: AMLO10TA4 PO (09:51)
[2017-08-27] MEDS ORDERED: INSU100V3 SQ (09:51)
[2017-08-27] MEDS ORDERED: MAGN400O6 PO (09:51)
[2017-08-27] MEDS ORDERED: VIT1TABL44 GT (09:51)
[2017-08-27] MEDS ORDERED: CLON0.1T PO (09:51)
[2017-08-27] MEDS ORDERED: ACET-868 PO (09:51)
[2017-08-27] MEDS ORDERED: NA P133E RC (09:51)
[2017-08-27] MEDS ORDERED: SEVE800T8 PO (09:51)
[2017-08-27] MEDS ORDERED: ASPI-1152 PO (09:51)
[2017-08-27 09:58] LABS: TROPONIN I < 0.017 ng/mL (0.00-0.056)
[2017-08-27 10:03] LABS: APPEARANCE,URINE Cloudy (CLEAR); BILIRUBIN,URINE SMALL (NEGATIVE); BLOOD, URINE Moderate Ery/uL (NEGATIVE); COLOR,URINE Yellow (YELLOW); KETONES,URINE Trace (NEGATIVE); LEUKOCYTE ESTERASE ,URINE Large (NEGATIVE); NITRITE, URINE Negative (NEGATIVE); PROTEIN,URINE >=300 mg/dl (NEGATIVE); UGLUCOSE Negative (NEGATIVE); UROBILINOGEN,URINE 0.2 EU/dL (0.2)
[2017-08-27 10:29] LABS: BACTERIA,URINE Moderate /HPF (None Seen); SQUAMOUS EPITHELIAL CELL,UR Few /HPF (None Seen); WBC,URINE TOO NUMEROUS TO COUN /HPF (0-3)
[2017-08-27 10:30] LABS: URINE AMORPHOUS URATE Many /HPF (None Seen)
--- NOTE | 2017-08-27 10:38 | NUR ---
PANEL HOUSING DIRECTOR PAGED
[2017-08-27] MEDS ORDERED: CEFTRIAXONE 1GM BAG (ER ONLY) 50 ML IV ONE ×2 (10:46→11:00)
--- NOTE | 2017-08-27 11:31 | NUR ---
REPORT GIVEN TO DARLENE VINCENT FOR CONT OF CARE. PT IS GOING TO 325.1
--- NOTE | 2017-08-27 11:51 | NUR ---
TRANSFERRED TO FLOOR VIA ACLS PROTOCOL
--- NOTE | 2017-08-27 12:15 | NUR ---
MS ADMISSION NOTE RECEIVED PT. PT IS LETHARGIC UPON ARRIVAL, ED REPORTS THAT PT WAS COMBATIVE PRIOR TO TRANSFER, HOWEVER WAS CALMED AND BECAME LETHARGIC UPON ARRIVAL TO [facility], WILL NOTIFY ATTENDING MD. ADMISSION ORDERS RECEIVED. SAFETY MEASURES IN PLACE, CALL LIGHT WITHIN REACH. WILL CONTINUE TO MONITOR.
[2017-08-27 12:30] VITALS: BP 135/52
[2017-08-27] MEDS: PANTOPRAZOLE 40 MG TABLET.DR PO SCH (13:30)
[2017-08-27] MEDS ORDERED: HYDROCODONE/APAP 5/325MG 1 EACH TABLET PO PRN (13:30)
[2017-08-27] MEDS ORDERED: ACETAMINOPHEN 325 MG TABLET PO PRN (13:30)
[2017-08-27] MEDS ORDERED: MAGNESIUM HYDROXIDE 30 ML UDC PO PRN (13:30)
[2017-08-27] MEDS ORDERED: ONDANSETRON HCL/PF 4 MG/2 ML VIAL IVP PRN (13:30)
[2017-08-27] MEDS ORDERED: ZOLPIDEM TARTRATE 5 MG TABLET PO PRN (13:30)
[2017-08-27] MEDS ORDERED: Z GUARD REMEDY 2 OZ OINT TP PRN (13:30)
[2017-08-27] MEDS ORDERED: MAG HYDROX/AL HYDROX/SIMETH 30 ML UDC PO PRN (13:30)
[2017-08-27 16:33] VITALS: BP 100/46
--- NOTE | 2017-08-27 18:35 | NUR ---
RN CLOSING NOTE PT IS IN BED SLEEPING. PT REMAINS LETHARGIC, ONLY AROUSABLE THROUGH LIGHT PAIN SENSATION, MD AWARE. POSSIBLY DUE TO ACUTE ENCEPHALOPATHY R/T TOXIC METABOLIC SYNDROME, PER MD MARYANN AVILA NOTE. SAFETY MEASURES IN PLACE, CALL LIGHT WITHIN REACH. WILL ENDORSE TO DIRECTOR OF USER EXPERIENCE FOR JOO.
--- NOTE | 2017-08-27 19:10 | NUR ---
KAI WHAKARURUHAU OPENING NOTES RECEIVED PT LAYING IN BED, SLEEPING COMFORTABLY. PT IS RESPONSIVE TO LIGHT PAIN, REMAINS LETHARGIC. RESPIRATIONS ARE EVEN AND UNLABORED AT THIS TIME. NO FACIAL GRIMACING OR MOANING NOTED. IV SITE INTACT, DRESSING KEPT CLEAN AND DRY. NO INFILTRATION NOTED. SAFETY MEASURES ARE IN PLACE. CALL LIGHT IS LEFT WITHIN REACH. WILL MONITOR THROUGHOUT SHIFT.
--- NOTE | 2017-08-27 19:45 | NUR ---
COMMUNICATION TECHNICIAN NOTES PT NOTED WITH SEIZURES LASTING FOR 3.5 MINS WITH SMALL AMT OF FROTHY SPUTUM. PT TURNED TO SIDE TO PREVENT ASPIRATION. OXYGEN APPLIED. DR. JERSON KIM NOTIFIED OF SEIZURE AND WITH SMALL AMT OF FROTHY SPUTUM. NEW ORDERS FOR ATIVAN 1MG Q4H PRN AND NEUROLOGY CONSULT. ORDERS READ BACK AND VERIFIED, NOTED AND CARRIED OUT.
[2017-08-27 20:00] VITALS: BP 101/63
[2017-08-27] MEDS: LORAZEPAM INJ 2 MG/ML VIAL IV PRN (20:00)
--- NOTE | 2017-08-27 20:05 | NUR ---
TRAFFIC ATTENDANT NOTES PT IS STABLE AT THIS TIME. VITAL SIGNS: BP 101/63 HR 71 R17 O2 100% @2L/MIN VIA NC. REMAINS AFEBRILE. PT RESPONDS TO LIGHT PAIN, KEPT COMFORTABLE. WILL CONTINUE TO MONITOR.
[2017-08-27 20:46] VITALS: BP 101/63
[2017-08-28 00:09] VITALS: BP 122/52
--- NOTE | 2017-08-28 01:05 | NUR ---
DRYING UNIT FELTING MACHINE OPERATOR NOTES NO SEIZURES NOTED AT THIS TIME. CONTINUES TO BE LETHARGIC BUT NOT IN ANY APPARENT DISTRESS NOTED. PT KEPT COMFORTABLE, SAFETY MEASURE ARE IN PLACE. WILL CONTINUE TO MONITOR.
[2017-08-28 05:06] VITALS: BP 109/74
--- NOTE | 2017-08-28 06:27 | NUR ---
ROTOFORMER BACKTENDER CLOSING NOTES NEEDS RENDERED. PT CONTINUES TO BE LETHARGIC, RESPONSIVE TO LIGHT PAIN. RESPIRATIONS ARE EVEN AND UNLABORED, NOT IN ANY ACUTE DISTRESS NOTED. NO FACIAL GRIMACING NOTED AT THIS TIME. IV SITE INTACT, NO INFILTRATION NOTED. DRESSING KEPT CLEAN AND DRY. SAFETY MEASURES ARE IN PLACE. WILL ENDORSE TO NEXT SHIFT FOR CONTINUITY OF CARE.
[2017-08-28 06:39] LABS: CALCIUM, SERUM 9.2 mg/dL (8.5-10.1); CREATININE 5.3 mg/dL (0.6-1.3); MAGNESIUM 2.2 mg/dL (1.8-2.4); POTASSIUM 4.6 mmol/L (3.5-5.1)
[2017-08-28 06:53] LABS: BASOPHILS % (AUTO) 0.2 % (0.0-2.0); EOSINOPHILS % (AUTO) 1.3 % (0.0-6.0); HEMATOCRIT 36 % (33-45); HEMOGLOBIN 12.3 g/dL (11.5-14.8); LYMPHOCYTES # (AUTO) 1.2 /CMM (0.8-4.8); LYMPHOCYTES % (AUTO) 12.6 % (20.0-44.0); MEAN CORPUSCULAR HGB CONC 34 g/dl (31.0-36.0); MEAN CORPUSCULAR VOLUME 93 fL (82-100); MONOCYTES # (AUTO) 0.7 /CMM (0.1-1.30); MONOCYTES % (AUTO) 7.2 % (2.0-12.0); NEUTROPHILS # (AUTO) 7.5 /CMM (1.8-8.9); NEUTROPHILS % (AUTO) 78.7 % (43.0-81.0); PLATELET COUNT (AUTO) 235 /CMM (150-450); RDW COEFFICIENT OF VARIATION 15.4 (11.5-15.0); RED BLOOD CELL COUNT(AUTO) 3.89 MIL/uL (4.0-5.2); WHITE BLOOD COUNT (AUTO) 9.5 K/uL (4.3-11.0)
--- NOTE | 2017-08-28 07:20 | NUR ---
REPORT RECEIVED AT THE BEDSIDE. PATIENT IS SLEEPING, NO SOB OR DISTRESS NOTED AT THIS TIME. PATIENT DOES NOT APPEAR TO BE IN PAIN, NO FACIAL GRIMACE NOTED. HEART RATE SR IN THE 80S. BED IN A LOW POSITION, SEIZURE PRECAUTIONS IN PLACE, CALL LIGHT WITHIN PATIENT REACH. WILL MONITOR.
[2017-08-28] MEDS: PANTOPRAZOLE 40 MG TABLET.DR PO SCH (07:30)
[2017-08-28] MEDS: LORAZEPAM INJ 2 MG/ML VIAL IV PRN ×4 (07:32→23:04)
--- NOTE | 2017-08-28 07:38 | NUR ---
PT IS VERY LETHARGIC AT THIS TIME. UNABLE TO SWALLOW PILLS OR FOOD. UNABLE TO GIVE PO PROTONIX.
[2017-08-28 08:00] VITALS: BP 151/59
--- NOTE | 2017-08-28 10:30 | NUR ---
DR AVILA IS ON THE FLOOR. EXPLAINED THAT THE SON STATES THE PATIENT IS VERBAL PRIOR TO HOSPITALIZATION. DR AVILA STATES THAT SHE WILL HAVE DIALYSIS TODAY, STATES OK TO USE SOFT RESTRAINTS WHILE ON DIALYSIS.
--- NOTE | 2017-08-28 10:50 | NUR ---
PER DR AVILA. MAY PLACE ORDER FOR SOFT WRIST RESTRAINTS PRN FOR SAFETY.
[2017-08-28] MEDS: CEFTRIAXONE 1 G in IV NS 0.9% 50 ML IV SCH (11:13)
[2017-08-28 16:00] VITALS: BP 133/40
--- NOTE | 2017-08-28 17:50 | NUR ---
DIALYSIS COMPLETE, 2L REMOVED.
--- NOTE | 2017-08-28 18:54 | NUR ---
NO SIGNIFICANT CHANGES IN PATIENT CONDITION THROUGHOUT THE SHIFT. NO SOB OR DISTRESS NOTED AT THIS TIME. PATIENT DOES NOT APPEAR TO BE IN PAIN, NO FACIAL GRIMACE NOTED. RESTRAINTS RELEASED PATIENT IS CALM AT THIS TIME. BED IN A LOW POSITION, CALL LIGHT WITHIN PATIENT REACH. WILL ENDORSE FOR JOO.
--- NOTE | 2017-08-28 19:30 | NUR ---
RN MS OPENING NOTES RECEIVED PATIENT IN BED, RESPIRATIONS EVEN AND UNLABORED SPO2 AT 98%, NO FACIAL GRIMACING, NO GRUNTS OR MOANS NOTED AT THIS TIME, PATIENT LETHARGIC BUT EASILY AROUSABLE,KEEPS EYES CLOSED. IV TO RIGHT WRIST 20 GAUGE INTACT AND PATENT, LEFT UPPER ARM DIALYSIS ACCESS WITH PRECAUTIONS TAKEN, ONEIL CATHETER INTACT AND DRAINING, PATIENT IS CURRENTLY NOT REMOVING MEDICAL DEVICES RESTRAINTS NOT ON AT THIS TIME, WILL CONTINUE TO MONITOR.CALL LIGHT KEPT WITHIN REACH WILL CONTINUE TO DO FREQUENT CHECKS, REMAINS COMFORTABLE AT THIS TIME.
[2017-08-28 20:00] VITALS: BP 163/67
--- NOTE | 2017-08-28 20:00 | NUR ---
RN MS NOTES ORAL CARE PROVIDED.
--- NOTE | 2017-08-28 23:04 | NUR ---
RN MS NOTES, PATIENT NOTED TO BE YELLING AND REMOVING WELFARE INTERVIEWER, ATIVAN PRN GIVEN
--- NOTE | 2017-08-29 00:02 | NUR ---
RN MS NOTES NOTED ATIVAN EFFECTIVE , PATIENT REMAINS CALM AND SLEEPING BUT EASILY AROUSABLE, RESPIRATIONS EVEN AND UNLABORED.
--- NOTE | 2017-08-29 00:50 | NUR ---
RN MS NOTES MADE MD MADDOX AWARE OF ELEVATED BLOOD PRESSURE AND HEART AT AND DX AND AWAITING ST EVAL, PATIENT ASYMPTOMATIC, PER MD NO NEW ORDER AT THIS TIME, CONTINUE TO MONITOR. PATIENT REMAINS COMFORTABLE
--- NOTE | 2017-08-29 03:33 | NUR ---
RN MS NOTES NOTED PATIENT RUBBING BOTH HEELS ON BED, PT REMOVING PILLOWS FOR OFFLOADING, AND PATIENT ALSO REPOSITIONED TO SIDE NOTED PATIENT SELF REPOSITIONED ON BACK TO SUPINE POSITION, SKIN ASSESSED NOTED RIGHT HEEL WITH REDNESS, PICTURE TAKEN, COVERED WITH MEPILEX KEPT DRY, REPOSITIONED PLACED PILLOW BACK TO OFFLOAD AREA, WILL CONTINUE TO MONITOR AND REINFORCE OFFLOADING. WOUND CARE CONSULT IN PLACE.
[2017-08-29 06:17] LABS: BASOPHILS % (AUTO) 0.3 % (0.0-2.0); EOSINOPHILS % (AUTO) 1.5 % (0.0-6.0); HEMATOCRIT 38 % (33-45); HEMOGLOBIN 12.6 g/dL (11.5-14.8); LYMPHOCYTES # (AUTO) 1.5 /CMM (0.8-4.8); LYMPHOCYTES % (AUTO) 16.4 % (20.0-44.0); MEAN CORPUSCULAR HGB CONC 33 g/dl (31.0-36.0); MEAN CORPUSCULAR VOLUME 93 fL (82-100); MONOCYTES # (AUTO) 0.9 /CMM (0.1-1.30); MONOCYTES % (AUTO) 10.3 % (2.0-12.0); NEUTROPHILS # (AUTO) 6.5 /CMM (1.8-8.9); NEUTROPHILS % (AUTO) 71.5 % (43.0-81.0); PLATELET COUNT (AUTO) 291 /CMM (150-450); RDW COEFFICIENT OF VARIATION 15.3 (11.5-15.0); RED BLOOD CELL COUNT(AUTO) 4.11 MIL/uL (4.0-5.2); WHITE BLOOD COUNT (AUTO) 9.1 K/uL (4.3-11.0)
[2017-08-29 06:22] LABS: CALCIUM, SERUM 9.7 mg/dL (8.5-10.1); CREATININE 5.4 mg/dL (0.6-1.3); MAGNESIUM 2.1 mg/dL (1.8-2.4); PHOSPHORUS 6.2 mg/dL (2.5-4.9); POTASSIUM 4.4 mmol/L (3.5-5.1)
--- NOTE | 2017-08-29 06:37 | NUR ---
RN MS CLOSING NOTES PATIENT IN BED, RESPIRATIONS EVEN AND UNLABORED SPO2 AT 98%, NO FACIAL GRIMACING, NO GRUNTS OR MOANS NOTED AT THIS TIME, PATIENT LETHARGIC BUT EASILY AROUSABLE,KEEPS EYES CLOSED MOST OF THE TIME, NOTED RIGHT HEEL REDNESS SUKI CHANEL MADE AWARE OF FINDING AND INTERVENTIONS PROVIDED, IV TO RIGHT WRIST 20 GAUGE INTACT AND PATENT, LEFT UPPER ARM DIALYSIS ACCESS WITH PRECAUTIONS TAKEN, NO BLEEDING TO SITE BRUIT PRESENT, ONEIL CATHETER INTACT AND DRAINING, PATIENT IS CURRENTLY NOT REMOVING MEDICAL DEVICES AT THIS TIME RESTRAINTS NOT ON AT THIS TIME, WILL CONTINUE TO MONITOR.CALL LIGHT KEPT WITHIN REACH WILL CONTINUE TO DO FREQUENT CHECKS, REMAINS COMFORTABLE AT THIS TIME. NO SEIZURE ACTIVITY THIS SHIFT, WILL CONTINUE TO ENDORSE TO NEXT SHIFT FOR CONTINUITY OF CARE.
--- NOTE | 2017-08-29 07:15 | NUR ---
RN OPENING NOTES RECEIVED PT. IN BED SLEEPING, AND CALM. BREATHING UNLABORED, AND EVENLY ON OXYGEN AT 2L/MIN VIA NASAL CANNULA. NO S/S OF ACUTE DISTRESS. IV ACCESS IS INTACT ON RIGHT WRIST. PT. HAS NO RESTRAINTS. PT. HAS ONEIL CATHETER WITH 5 CC OUTPUT OF CLEAR, AND YELLOW URINE. BED IS IN LOWEST, AND LOCKED POSITION. ALL SIDE RAILS UP, AND PADDED. ALL NEEDS MET. WILL CONTINUE TO ASSESS AND MONITOR.
[2017-08-29] MEDS: PANTOPRAZOLE 40 MG TABLET.DR PO SCH (07:30)
[2017-08-29 08:00] VITALS: BP 174/76
--- NOTE | 2017-08-29 09:00 | NUR ---
RN NOTES PT. WAS SEEN BY SPEECH THERAPIST. PER ST SWALLOW EVALUATION WILL BE PERFORMED AT A LATER TIME WHEN PT. WILL BE MORE ALERT.
[2017-08-29 09:56] VITALS: BP 162/65
[2017-08-29] MEDS: CEFTRIAXONE 1 G in IV NS 0.9% 50 ML IV SCH (10:20)
--- NOTE | 2017-08-29 11:35 | NUR ---
CONTACT ISOLATION PT. WAS PLACED ON CONTACT ISOLATION DUE TO E.COLI IN URINE.
--- NOTE | 2017-08-29 13:00 | NUR ---
RN NOTES DISCUSSED WITH MD ABOUT PT.'S CONDITION, THAT INCLUDED PT.'S HIGH BLOOD PRESSURE, PT. HAS BEEN LETHARGIC, NON VERBAL, UNABLE TO DO A SWALLOW EVALUATION, AND HAS BEEN NPO SINCE THIS MORNING. ATIVAN WAS DISCONTINUED PER MD NEW ORDERS. WILL CONTINUE TO ASSESS AND MONITOR.
[2017-08-29] MEDS: MEROPENEM 500 MG in IV NS 0.9% 50 ML IV SCH (13:43)
[2017-08-29 16:00] VITALS: BP 186/89
--- NOTE | 2017-08-29 19:50 | NUR ---
RN MS OPENING NOTES RECEIVED PATIENT IN BED, RESPIRATIONS EVEN AND UNLABORED, NO FACIAL GRIMACING, NO GRUNTS OR MOANS NOTED AT THIS TIME, PATIENT LETHARGIC BUT EASILY AROUSABLE,KEEPS EYES CLOSED. IV TO RIGHT WRIST 20 GAUGE INTACT AND PATENT, LEFT UPPER ARM DIALYSIS ACCESS WITH PRECAUTIONS TAKEN BRUIT PRESENT, ONEIL CATHETER INTACT AND PATENT, PATIENT IS CURRENTLY NOT REMOVING MEDICAL DEVICES RESTRAINTS NOT ON AT THIS TIME, WILL CONTINUE TO MONITOR.CALL LIGHT KEPT WITHIN REACH WILL CONTINUE TO DO FREQUENT CHECKS, REMAINS COMFORTABLE AT THIS TIME.
[2017-08-29 20:00] VITALS: BP_SYST 132; BP_SYST 136; BP_DIAS 57
--- NOTE | 2017-08-29 20:10 | NUR ---
RN CLOSING NOTES PT. IS IN BED SLEEPING, AND CALM. OPENS EYES TO NAME, AND LIGHT PAINFUL STIMULI. BREATHING IS UNLABORED, AND EVEN ON OXYGEN AT 2L/MIN VIA NASAL CANNULA. NO S/S OF ACUTE DISTRESS. IV ACCESS IS INTACT ON RIGHT WRIST. PT. HAS NO RESTRAINTS ON. PT. HAS ONEIL CATHETER WITH 50 CC OUTPUT OF CLEAR, AND YELLOW URINE. BED IS IN LOWEST, AND LOCKED POSITION. SIDE RAILS UP, AND PADDED. ALL NEEDS MET. WILL ENDORSE REPORT TO NURSE.
[2017-08-30] MEDS: MEROPENEM 500 MG in IV NS 0.9% 50 ML IV SCH ×2 (00:04→13:05)
--- NOTE | 2017-08-30 06:58 | NUR ---
RN MS CLOSING NOTES PATIENT IN BED, RESPIRATIONS EVEN AND UNLABORED, NO FACIAL GRIMACING, NO GRUNTS OR MOANS NOTED AT THIS TIME, PATIENT LETHARGIC BUT EASILY AROUSABLE,KEEPS EYES CLOSED. IV TO RIGHT FA 24 GAUGE INTACT AND PATENT, LEFT UPPER ARM DIALYSIS ACCESS WITH PRECAUTIONS TAKEN BRUIT PRESENT, ONEIL CATHETER INTACT AND PATENT, PATIENT IS CURRENTLY NOT REMOVING MEDICAL DEVICES RESTRAINTS NOT ON AT THIS TIME, WILL CONTINUE TO MONITOR.CALL LIGHT KEPT WITHIN REACH WILL CONTINUE TO DO FREQUENT CHECKS, REMAINS COMFORTABLE AT THIS TIME. WILL ENDORSE TO NEXT SHIFT
[2017-08-30] MEDS: PANTOPRAZOLE 40 MG TABLET.DR PO SCH (07:30)
--- NOTE | 2017-08-30 07:30 | NUR ---
RN OPENING NOTES RECEIVED PT. IN BED CALM, A&OX1, PT. WAS ABLE TO VERBALIZE HER NAME. BREATHING IS UNLABORED, AND EVEN ON OXYGEN AT 2L/MIN VIA NASAL CANNULA. NO S/S OF ACUTE DISTRESS. NEW IV ACCESS ON RIGHT FOREARM GAUGE 24, AND RIGHT WRIST, BOTH ARE INTACT AND PATENT. PT. HAS NO RESTRAINTS ON AT THIS TIME. PT. HAS ONEIL CATHETER WITH 10 CC OUTPUT OF CLEAR, AND YELLOW URINE. BED IS IN LOWEST, AND LOCKED POSITION. ALL SIDE RAILS UP, AND PADDED. ALL NEEDS MET. WILL CONTINUE TO ASSESS AND MONITOR.
--- NOTE | 2017-08-30 07:36 | NUR ---
RN NOTES HELD PROTONIX PO MEDICATION DUE TO PT. AWAITING SWALLOW EVALUATION WITH SPEECH THERAPIST.
[2017-08-30 08:00] VITALS: BP 144/67
--- NOTE | 2017-08-30 08:36 | NUR ---
ORAL CARE PERFORMED PT. TOLERATED ORAL CARE THIS MORNING.
--- NOTE | 2017-08-30 10:00 | NUR ---
RN NOTES PT. WAS SEEN AND EXAMINED BY MELISA JIMENEZBANQUET COORDINATOR NURSE. PER BARBARA'S RECOMMENDATION PT. WILL NEED TO BE PLACED ON AN ISOFLEX MATTRESS, AND KEEP HEELS FLOATING/OFFLOAD WITH PILLOWS.
--- NOTE | 2017-08-30 10:36 | NUR ---
RN NOTES PT. WAS SEEN AND EXAMINED BY SPEECH THERAPIST FOR SWALLOW EVALUATION. PT. WAS ABLE TO TOLERATE AND SWALLOW THIN LIQUIDS, AND CHEW FINE CHOPPED FOOD. OKAY TO CHANGE PT.'S DIET ORDER TO FINE CHOPPED TEXTURE. PT. WAS ABLE TO CONSUME GRITS, PANCAKES, AND APPLE JUICE SAFELY.
--- NOTE | 2017-08-30 10:44 | NUR ---
WOUND CARE CONSULT: PT PRESENTS WITH RT HEEL BLANCHABLE REDNESS AND UNEVEN PIGMENTATION TO RT FOOT. PT NOTED TO BE CROSSING HER ANKLES AND RUBBING HER FEET ON THE BED. HEELS TO BE FLOATED AT ALL TIMES. DISCUSSED SKIN PROTECTION WITH NURSING STAFF. CURRENT BRIAN SCORE IS 11. THAD CLARKE NOTED. RECOMMEND LOW AIRLOSS BED (LAN ISOFLEX) AND DISCUSSED WITH NURSING STAFF. WILL SEE PRN. GILES IN AGREEMENT WITH PLAN OF CARE. Addendum: 08/30/17 at 1047 by BARBARA RIVERS WNDNU Amended: Links added.
--- NOTE | 2017-08-30 11:14 | NUR ---
RN NOTES PT. WAS SEEN AND EXAMINED BY PHYSICAL THERAPIST. PER PHYSICAL THERAPIST, PT. WAS MOTIVATED DURING THERAPY, WAS ABLE TO STAND 5 MIN USING WALKER AT BEDSIDE, WITH STANDBY ASSIST. PT. WAS ABLE TO FOLLOW DIRECTION.
--- NOTE | 2017-08-30 12:00 | NUR ---
RN NOTES PT.'S WAS CALM, AND WAS NOT AT RISK OF INJURING HERSELF, OR DISRUPTING MEDICAL TREATMENT. PT. WAS NOT PULLING ON LINES. RESTRAINTS WERE NOT APPLIED TODAY.
[2017-08-30] MEDS ORDERED: QUETIAPINE FUMARATE 25 MG TABLET PO PRN (12:30)
[2017-08-30] MEDS: SEVELAMER CARBONATE 0.8 GM POWD.PACK GT SCH ×2 (13:05→18:24)
--- NOTE | 2017-08-30 13:34 | NUR ---
ONEIL CATHETER REMOVED PER MD ORDERS. ONEIL CATHETER WAS REMOVED WITHOUT COMPLICATIONS. PT. TOLERATED WELL. REMOVED 100 CC OF CLOUDY, AND YELLOW URINE.
[2017-08-30 16:00] VITALS: BP 162/72
--- NOTE | 2017-08-30 17:38 | NUR ---
RN NOTES PT. HAD HEMODIALYSIS, 2 LITERS WERE REMOVED, PT.'S BP 129/79, PULSE 101.
--- NOTE | 2017-08-30 19:30 | NUR ---
RN CLOSING NOTES PT. IS SITTING UP IN BED CALM, A&OX2, PT. CAN VERBALIZE NAME, AND ANSWER QUESTIONS. BREATHING IS UNLABORED, AND EVEN ON ROOM AIR. PT.'S FAMILY IS AT BEDSIDE. NO S/S OF ACUTE DISTRESS. PT. HAS NO RESTRAINTS ON AT THIS TIME. ONEIL CATHETER WAS REMOVED TODAY. PT. WAS ABLE TO PARTICIPATE WITH PHYSICAL THERAPY. WOUND CARE, AND CONSULT WAS PERFORMED WITH MELISA JIMENEZ TODAY. SWALLOW EVALUATION WAS COMPLETED, AND PT. PASSED EVALUATION. PT. WAS ABLE TO TOLERATE FINE CHOPPED FOODS, PUDDING, APPLE SAUCE, AND THIN LIQUIDS. BED IS IN LOWEST, AND LOCKED POSITION. PT. HAD HEMODIALYSIS TODAY AT 2 LITERS WERE REMOVED. ALL SIDE RAILS UP, AND PADDED. ALL NEEDS MET. WILL ENDORSE REPORT TO NURSE.
--- NOTE | 2017-08-30 19:30 | NUR ---
RECEIVED PATIENT IN BED AWAKE, AO X 1, ABLE TO MAKE NEEDS KNOWN. NO ACUTE DISTRESS NOTED. DENIES ANY PAIN AT THIS TIME. IV SITE PATENT, INTACT. PATIENT IS VERY COOPERATIVE AND CALM. NO RESTRAINTS AT THIS TIME. SAFETY REMINDERS GIVEN. ON LOW BED WITH BILATERAL UPPER SIDE RAILS UP. CALL KNOWLES WITHIN EASY REACH. ON CONTACT ISOLATION FOR ESBL POS ECOLI IN URINE. WILL CONTINUE TO CLOSELY MONITOR.
[2017-08-30 20:00] VITALS: BP 141/63
[2017-08-31] MEDS: MEROPENEM 500 MG in IV NS 0.9% 50 ML IV SCH ×2 (00:31→12:40)
--- NOTE | 2017-08-31 06:11 | NUR ---
PATIENT ASLEEP, EASILY AROUSABLE. NO SIGNS OF PAIN NOTED. DUE MED GIVEN WITH NO ASE NOTED. NEEDS ATTENDED. KEPT CLEAN, DRY, AND COMFORTABLE. SAFETY PRECAUTIONS AND COMFORT MEASURES IN PLACE. WILL GIVE REPORT TO DAY SHIFT FOR CONTINUITY OF CARE.
[2017-08-31 08:00] VITALS: BP 158/63
--- NOTE | 2017-08-31 08:00 | NUR ---
MS AM NOTES RECEIVED PATIENT IN BED AWAKE, AO X 1, ABLE TO MAKE NEEDS KNOWN. NO ACUTE DISTRESS NOTED. DENIES ANY PAIN.IV SITE PATENT, INTACT. PATIENT IS VERY COOPERATIVE AND CALM. NO RESTRAINTS AT THIS TIME. SAFETY REMINDERS GIVEN. ON LOW BED WITH BILATERAL UPPER SIDE RAILS UP. CALL KNOWLES WITHIN EASY REACH. ON CONTACT ISOLATION FOR ESBL POS ECOLI IN URINE. WILL CONTINUE TO CLOSELY MONITOR.
[2017-08-31] MEDS: SEVELAMER CARBONATE 0.8 GM POWD.PACK GT SCH ×3 (08:39→17:34)
[2017-08-31] MEDS: PANTOPRAZOLE 40 MG TABLET.DR PO SCH (08:39)
[2017-08-31 16:04] VITALS: BP 141/71
--- NOTE | 2017-08-31 17:53 | NUR ---
DISCHARGED PT VIA AMBULANCE TO [facility] WITH STABLE V/S.CONTINUE TO BE ON CONTACT ISOLATION PRECAUTIONS FOR ESBL URINE IN THE FACILITY.TO CONTINUE IV ATB THERAPY IN THE SNF.IV H/L TO RFA AND RT WRIST REMAINS WITH GOOD BACKFLOW FOR IV ATB THERAPY.REPORT CALLED IN TO MELISA WALTON OF [facility].
--- NOTE | 2017-08-31 17:58 | NUR ---
RT ARM IS BIGGER THAN LEFT BUT NO EDEMA NOTED.BOTH IV SITES HAS NO S/S OF INFILTRATION OR REDNESS NOTED.
[2017-11-23] MEDS ORDERED: CARV12.52 PO (11:25)
[2017-11-23] MEDS ORDERED: ATOR10TA PO (11:25)
== END 2017-08-31 17:53 | DRG 689 ==
LOC: ER 09:07 → TELE 11:40 → MED 08-28 09:48
PROVIDERS: ADMIT Internal Medicine Nephrology; ATTEND Internal Medicine Nephrology
PROC: 5A1D70Z Performance of Urinary Filtration, Intermittent, Less than 6 Hours Per Day (ICD-10-PCS; principal; 2017-08-28)
PROC: 5A1D70Z Performance of Urinary Filtration, Intermittent, Less than 6 Hours Per Day (ICD-10-PCS; 2017-08-28)
DX: N39.0 Urinary tract infection, site not specified (principal); N18.6 End stage renal disease; G92 Toxic encephalopathy; E11.22 Type 2 diabetes mellitus with diabetic chronic kidney disease; F05 Delirium due to known physiological condition; E44.1 Mild protein-calorie malnutrition; R13.10 Dysphagia, unspecified; I12.0 Hypertensive chronic kidney disease with stage 5 chronic kidney disease or end stage renal disease; D63.8 Anemia in other chronic diseases classified elsewhere; E78.5 Hyperlipidemia, unspecified; Z99.2 Dependence on renal dialysis; Z79.82 Long term (current) use of aspirin; Z88.1 Allergy status to other antibiotic agents; Z88.2 Allergy status to sulfonamides; Z79.4 Long term (current) use of insulin; Z79.899 Other long term (current) drug therapy; M85.9 Disorder of bone density and structure, unspecified; B96.20 Unspecified Escherichia coli [E. coli] as the cause of diseases classified elsewhere; I70.0 Atherosclerosis of aorta; F29 Unspecified psychosis not due to a substance or known physiological condition; F03.90 Unspecified dementia, unspecified severity, without behavioral disturbance, psychotic disturbance, mood disturbance, and anxiety
CPT/HCPCS: 36415; 70450-TC; 71045-TC; 80048-TC; 80061-TC; 80076-TC; 81000-TC; 83605-TC; 83735-TC; 84100-TC; 84484-TC; 85025-TC; 85730-TC; 87040-TC; 87081-TC; 87086-TC; 87186-TC; 90935-TC; 92611-TC; A4216; J0696; J2060; J2185; J7030; J7060

== ENCOUNTER 2017-11-18 18:14 | Inpatient (IN) | payer MEDICARE, OTHER ==
[~2017-11-18] VITALS: Ht 160 cm; Wt 68.1 kg
[~2017-11-18 18:14] MED LIST changes: +ACET-868 PO; +AMLO10TA2 PO; +AMLO10TA4 PO; -AMLO10TA6 PO; +ASPI-1152 PO; -ASPI-1169 PO; -ATOR40TA PO; -Blood Sugar Diagnostic IN; +CLON0.1T PO; -CLON0.2T PO; -ERGO500040 PO; -FERR325T24 PO; -FURO40TA5 PO; -INSU100V28 SQ; +INSU100V3 SQ; +MAGN400O6 PO; +NA P133E RC; +SEVE800T8 PO; +VIT1TABL44 GT
[2017-11-18 18:38] LABS: MEAN CORPUSCULAR HEMOGLOBIN 32 PG (26.0-33.0)
[2017-11-18] MEDS ORDERED: PANT40TA2 PO (18:47)
[2017-11-18 18:52] LABS: BASOPHILS % (AUTO) 0.4 % (0.0-2.0); EOSINOPHILS % (AUTO) 1.5 % (0.0-6.0); HEMATOCRIT 35 % (33-45); HEMOGLOBIN 11.6 g/dL (11.5-14.8); LYMPHOCYTES % (AUTO) 8.3 % (20.0-44.0); MEAN CORPUSCULAR HGB CONC 33 g/dl (31.0-36.0); MEAN CORPUSCULAR VOLUME 95 fL (82-100); MONOCYTES # (AUTO) 0.9 /CMM (0.1-1.30); MONOCYTES % (AUTO) 7.4 % (2.0-12.0); NEUTROPHILS # (AUTO) 9.6 /CMM (1.8-8.9); NEUTROPHILS % (AUTO) 82.4 % (43.0-81.0); PLATELET COUNT (AUTO) 227 /CMM (150-450); RDW COEFFICIENT OF VARIATION 13.4 (11.5-15.0); RED BLOOD CELL COUNT(AUTO) 3.69 MIL/uL (4.0-5.2); WHITE BLOOD COUNT (AUTO) 11.7 K/uL (4.3-11.0)
[2017-11-18 18:53] LABS: INR 0.93 (0.85-1.15)
[2017-11-18 18:55] LABS: ALANINE AMINOTRANSFERASE 22 U/L (12-78); ALBUMIN 3.4 g/dL (3.4-5.0); ALKALINE PHOSPHATASE 180 U/L (46-116); ASPARTATE AMINOTRANSFERASE 22 U/L (15-37); BILIRUBIN,DIRECT 0.1 mg/dL (0.0-0.2); BILIRUBIN,TOTAL 0.4 mg/dL (0.2-1.0); CALCIUM, SERUM 9.7 mg/dL (8.5-10.1); CARBON DIOXIDE 26 mmol/L (21-32); CHLORIDE 97 mmol/L (98-107); GLUCOSE 92 mg/dL (74-106); POTASSIUM 3.9 mmol/L (3.5-5.1); SODIUM SERUM 132 mmol/L (136-145); TOTAL PROTEIN, SERUM 8.4 g/dL (6.4-8.2); UREA NITROGEN, BLOOD 34 mg/dL (7-18)
[2017-11-18 18:57] LABS: TROPONIN I < 0.017 ng/mL (0.00-0.056)
--- NOTE | 2017-11-18 19:09 | NUR ---
CALLED [facility], SENIOR PROJECT COORDINATOR WAS PAGED.
[2017-11-18 20:10] VITALS: BP 135/67
[2017-11-18] MEDS ORDERED: NITROGLYCERIN PACKET 1 GM PACKET TD ONE (20:30)
[2017-11-18] MEDS ORDERED: ASPIRIN 81 MG TAB.CHEW PO ONE (20:30)
--- NOTE | 2017-11-18 20:35 | NUR ---
[facility] LAW CLERKHAND HARDENER NOTES 62 year old, female patient received from ER around [address] Jacobsen with chief complaints of chest pain and vomiting during dialysis procedure earlier today. TELE monitor shows Sinus Rhythm; HR 75. Patient is alert and oriented x4, verbally responsive in albanian language. Patient denies any chest pain upon arrival to [facility]. No SOB noted. Not in any type of distress. ASA and Nitrobid given in ER. IV on right hand #20g and KELL AV shunnt (covered with dressing) noted. Allergies to Sulfa and Bactrim according to patient. Medical history obtained from patient: HTN, Hyperlipidemia, Unspecified stroke, ESRD, Appendectomy and kidney stones removal. Flu and PNA vaccines received this June 2017. Skin body assessment done. LBM: 11/18/17 in AM. last void: 11/18/17 in AM. Ambulatory with assist. Kept patient clean and dry. Offered assistance and snacks. Safety measures in place. Call light within reach. Will continue to monitor and assess patient. Will call MD for further instructions and new admit orders.
--- NOTE | 2017-11-18 21:25 | NUR ---
DRYWALL STRIPPER HELPER - NON-ADMIN NOTES ASA and Nitro-bid given at ER upon arrival per Dianne/Jamar from ER Dept.
--- NOTE | 2017-11-18 21:49 | NUR ---
SILK SCREEN PAINTER - NEW ADMIT ORDERS Called and spoke with Dr. Jacobsen for new admit orders. Continue Renal Standard diet and MD will input medication orders.
[2017-11-19] MEDS ORDERED: Z GUARD REMEDY 2 OZ OINT TP PRN
[2017-11-19] MEDS ORDERED: ACETAMINOPHEN 325 MG TABLET PO PRN ×2
[2017-11-19] MEDS ORDERED: MAG HYDROX/AL HYDROX/SIMETH 30 ML UDC PO PRN
[2017-11-19] MEDS ORDERED: ONDANSETRON HCL/PF 4 MG/2 ML VIAL IVP PRN
[2017-11-19] MEDS ORDERED: ZOLPIDEM TARTRATE 5 MG TABLET PO PRN
[2017-11-19] MEDS ORDERED: CLONIDINE HCL 0.1 MG TABLET PO SCH
[2017-11-19] MEDS ORDERED: HYDROCODONE/APAP 5/325MG 1 EACH TABLET PO PRN
[2017-11-19 00:10] VITALS: BP 121/58
[2017-11-19 04:00] VITALS: BP 143/60
--- NOTE | 2017-11-19 05:51 | NUR ---
BOOKER NOTES Patient remained in bed, sleeping comfortably, easily aroused. Denies any chest pain/any type of pain. Unlabored breathing noted. Not in any type of distress. Afebrile. NPO by midnight for possible test/procedure. IV on right hand #20g: patent and intact and KELL shunt with dry dressing in place. Ambulatory with assist. AM labs per order and continue hospitalization as planned. CXR negative. Safety measures in place. Bed in lowest position with bed alarm on and call light within reach. All needs anticipated and met. Will continue to monitor patient
[2017-11-19 07:02] LABS: BASOPHILS % (AUTO) 0.2 % (0.0-2.0); EOSINOPHILS % (AUTO) 4.3 % (0.0-6.0); HEMATOCRIT 33 % (33-45); HEMOGLOBIN 11.1 g/dL (11.5-14.8); LYMPHOCYTES # (AUTO) 1.7 /CMM (0.8-4.8); LYMPHOCYTES % (AUTO) 21.3 % (20.0-44.0); MEAN CORPUSCULAR HEMOGLOBIN 33 PG (26.0-33.0); MEAN CORPUSCULAR HGB CONC 34 g/dl (31.0-36.0); MEAN CORPUSCULAR VOLUME 97 fL (82-100); MONOCYTES # (AUTO) 0.7 /CMM (0.1-1.30); MONOCYTES % (AUTO) 8.6 % (2.0-12.0); NEUTROPHILS # (AUTO) 5.2 /CMM (1.8-8.9); NEUTROPHILS % (AUTO) 65.6 % (43.0-81.0); PLATELET COUNT (AUTO) 217 /CMM (150-450); RED BLOOD CELL COUNT(AUTO) 3.39 MIL/uL (4.0-5.2); WHITE BLOOD COUNT (AUTO) 7.9 K/uL (4.3-11.0)
[2017-11-19 07:11] LABS: CALCIUM, SERUM 8.8 mg/dL (8.5-10.1); CREATININE 5.3 mg/dL (0.6-1.3); MAGNESIUM 2.1 mg/dL (1.8-2.4); PHOSPHORUS 4.9 mg/dL (2.5-4.9); POTASSIUM 3.7 mmol/L (3.5-5.1)
--- NOTE | 2017-11-19 07:18 | NUR ---
MULLING MACHINE OPERATOR CLOSING NOTES TELE monitor shows SR; HR 73-75. Report given to MELISA Waite. No changes noted or reported. Safety measures in place
[2017-11-19] MEDS ORDERED: INSULIN GLARGINE, 100 UNIT/ML CARTRIDGE SQ SCH (07:53)
[2017-11-19 08:00] VITALS: BP 137/61
[2017-11-19] MEDS: PANTOPRAZOLE 40 MG TABLET.DR PO SCH (08:54)
[2017-11-19] MEDS: AMLODIPINE BESYLATE 10 MG TABLET PO SCH (08:54)
[2017-11-19] MEDS: ASPIRIN EC 81 MG TABLET.DR PO SCH (08:55)
[2017-11-19] MEDS: VIT B CMPLX 3/FA/VIT C/BIOTIN 1 TAB TABLET GT SCH (08:55)
[2017-11-19] MEDS: PENTOXIFYLLINE 400 MG TABLET.SA PO SCH (08:55)
[2017-11-19] MEDS: SEVELAMER CARBONATE 800 MG TABLET PO SCH ×3 (08:55→18:14)
[2017-11-19] MEDS ORDERED: CARVEDILOL 12.5 MG TABLET PO SCH (09:00)
--- NOTE | 2017-11-19 09:00 | NUR ---
TANGLED YARN WORKER INITIAL NOTE PT IS IN BED, SLEEPING WITH BED IN LOWEST POSITION WITH SIDE RAILS UP X2. PT IS A&O X4, HAS NO COMPLAINTS, DENIES PAIN AND DISTRESS. PT HAS SINUS RHYTHM OF 70s. IV IS INTACT AND PATENT ON RIGHT HAND. KELL SHUNT IS INTACT WITH DRESSING, NO BLEEDING AT THE SITE. PT HAS NO COMPLAINS OF CHEST PAIN. WILL CONTINUE TO MONITOR AND FOLLOW UP PROCEDURES THROUGHOUT SHIFT.
[2017-11-19] MEDS: INSULIN GLARGINE, 100 UNIT/ML CARTRIDGE SQ SCH (10:07)
--- NOTE | 2017-11-19 10:19 | NUR ---
RT NOTE LATE ENTRY: @1010 PT AWAKE AND ALERT. PT REFUSED ABG. NO RESP DISTRESS OR SOB NOTED. PT SATING 97%. RN DAYLIN AWARE.
[2017-11-19] MEDS: ATORVASTATIN 10 MG TABLET PO SCH (10:27)
[2017-11-19] MEDS ORDERED: CLONIDINE HCL 0.1 MG TABLET PO PRN (10:30)
[2017-11-19 12:00] VITALS: BP 125/57
[2017-11-19] MEDS ORDERED: DEXTROSE 50%-WATER 50 ML DISP.SYRIN IV PRN (13:30)
[2017-11-19] MEDS: BLOOD SUGAR DIAGNOSTIC 1 EACH STRIP IN SCH ×3 (14:19→21:17)
[2017-11-19 16:00] VITALS: BP 135/58
--- NOTE | 2017-11-19 17:00 | NUR ---
Patient is alert and oriented, resides at [facility] [phone]. She received hemodialysis 3x/week q MWF @ [facility].Bedhold is on bedhold x7days. Addendum: 11/19/17 at 1700 by LEONOR GAMBOA RN Amended: Links added.
[2017-11-19] MEDS: INSULIN REGULAR, HUMAN 100 UNIT/ML 3 ML VIAL SQ PRN ×2 (17:12→22:20)
[2017-11-19] MEDS: CARVEDILOL 12.5 MG TABLET PO SCH (17:22)
--- NOTE | 2017-11-19 18:27 | NUR ---
TELE CLOSING NOTES PT REMAINS IN BED, ABLE TO AMBULATE WHEN NEEDED TO THE RESTROOM. BED IN LOWEST POSITION, PT RECEIVED ALL SAFETY MEASURES THROUGHOUT SHIFT. IV AND KELL SHUNT REMAIN INTACT. PT HAS TWO IV SITES ON RIGHT ARM OF RAC 18 AND R HAND 20 GAUGE. PT HAS NO CURRENT COMPLAINTS, WILL ENDORSE TO [employer]AND.
--- NOTE | 2017-11-19 19:30 | NUR ---
RN MS OPENING NOTES RECEIVED PATIENT IN BED ASLEEP - EASILY AROUSABLE. ALERT AND ORIENTED X4, VERBALLY RESPONSIVE, ABLE TO MAKE NEEDS KNOWN WHEN AWAKE - [place] SPEAKER. BREATHING EVEN AND UNLABORED. NO SOB NOTED. NO COMPLAINTS OF PAIN OR DISCOMFORT. NO FACIAL GRIMACING. IV ON RIGHT HAND #20 AND RIGHT AC #18 INTACT AND PATENT. LEFT UA SHUNT INTACT. SKIN DRY AND WARM TO TOUCH. ALL OTHER NEEDS ATTENDED TO. CALL LIGHT WITHIN REACH. BED ON LOWEST LOCKED POSITION. WILL CONTINUE TO MONITOR
[2017-11-19 20:00] VITALS: BP 120/52
--- NOTE | 2017-11-19 22:52 | NUR ---
RN MS NOTES PATIENT WITH SCHEDULED CTA FOR TOMORROW AM AND WITH ORDERS TO BE NPO AFTER MIDNIGHT. JERSON FROM RADIOLOGY (?) CALLED AND STATED HE WON'T BE ABLE TO DO THE CTA TILL AROUND 11AM-12PM OR MAYBE EVEN AFTER HER DIALYSIS. PER JERSON,. SHE IS OK TO EAT BREAKFAST TOMORROW AM. HE WILL GET IN TOUCH WITH DAY NURSE FOR FURTHER INSTRUCTIONS.
[2017-11-20] VITALS: BP 130/58
[2017-11-20 04:00] VITALS: BP 140/50
--- NOTE | 2017-11-20 07:06 | NUR ---
RN MS CLOSING NOTES PATIENT RESITING IN BED - EASILY AROUSABLE. ALERT AND ORIENTED X4, VERBALLY RESPONSIVE, ABLE TO MAKE NEEDS KNOWN WHEN AWAKE - [place]IVE[place] SPEAKER. BREATHING EVEN AND UNLABORED. NO SOB NOTED. NO COMPLAINTS OF PAIN OR DISCOMFORT. NO FACIAL GRIMACING. IV ON RIGHT HAND #20 AND RIGHT AC #18 INTACT AND PATENT. LEFT UA SHUNT INTACT. SKIN DRY AND WARM TO TOUCH. KEPT CLEAN, DRY, AND COMFORTABLE. ALL OTHER NEEDS ATTENDED TO. CALL LIGHT WITHIN REACH. BED ON LOWEST LOCKED POSITION. WILL ENDORSE TO ONCOMING NURSE FOR CONTINUITY FOR CARE.
[2017-11-20] MEDS: BLOOD SUGAR DIAGNOSTIC 1 EACH STRIP IN SCH ×4 (07:40→21:13)
--- NOTE | 2017-11-20 07:52 | NUR ---
MS MARIA LUZ NOTES PT IS A7O X4 , AWAKE, IN BED. PT IS ON A CCHO AND RENAL DIET, IS ABLE TO EAT AND IS NOT NPO. PT REFUSED BLOOD DRAW IN AM. NO RESPIRATORY DISTRESS, NO SOB. IV SITE RAC AND R HAND INTACT AND PATENT, NO PAIN AT IV SITE. KELL SHUNT INTACT, DRESSING IS INTACT. AWAITING FROM RADIOLOGY WHEN CTA PROCEDURE WILL PROCEED. PT IS SCHEDULED FOR DIALYSIS AT 1300 TODAY. WILL MONITOR PT THROUGHOUT SHIFT. Addendum: 11/20/17 at 0758 by AUDELIA TURCIOS RN BED IS IN LOWEST POSITION WITH SIDE RAILS UP X2. SAFETY MEASURES TAKEN PLACE, PT IS ABLE TO AMBULATE.
[2017-11-20 08:00] VITALS: BP 132/58
[2017-11-20] MEDS: ASPIRIN EC 81 MG TABLET.DR PO SCH (08:59)
[2017-11-20] MEDS: AMLODIPINE BESYLATE 10 MG TABLET PO SCH (08:59)
[2017-11-20] MEDS: PANTOPRAZOLE 40 MG TABLET.DR PO SCH (08:59)
[2017-11-20] MEDS: SEVELAMER CARBONATE 800 MG TABLET PO SCH ×3 (08:59→18:24)
[2017-11-20] MEDS: PENTOXIFYLLINE 400 MG TABLET.SA PO SCH (08:59)
[2017-11-20] MEDS: ATORVASTATIN 10 MG TABLET PO SCH (08:59)
[2017-11-20] MEDS: VIT B CMPLX 3/FA/VIT C/BIOTIN 1 TAB TABLET GT SCH (08:59)
[2017-11-20] MEDS: CARVEDILOL 12.5 MG TABLET PO SCH ×2 (09:00→17:00)
[2017-11-20] MEDS: INSULIN GLARGINE, 100 UNIT/ML CARTRIDGE SQ SCH (09:00)
--- NOTE | 2017-11-20 10:00 | NUR ---
PT REFUSED LONG ACTING INSULIN LANTUS OF 25 UNITS. PT WAS GIVEN TEACHING REGARDING LONG ACTING INSULIN AND DM. PT CONTINUED TO REFUSE AFTER PATIENT TEACHING WAS GIVEN FOR 9000 AM DOSE.
[2017-11-20] MEDS ORDERED: METOPROLOL TARTRATE INJ 5 MG/5 ML AMPUL ONE ×2 (10:48→11:00)
[2017-11-20] MEDS ORDERED: NITROGLYCERIN 0.4 MG/TAB BOTTLE ONE (10:48)
[2017-11-20] MEDS: METOPROLOL TARTRATE INJ 5 MG/5 ML AMPUL IVP PRN ×4 (12:11→12:41)
[2017-11-20] MEDS ORDERED: DILTIAZEM HCL 25 MG IV IV ONE (13:00)
[2017-11-20] MEDS ORDERED: IV NS 0.9% 250 ML IV ONE (13:08)
[2017-11-20] MEDS ORDERED: CT SWABBABLE VALVE TRANS SET 1 EA INFUS.SET MC ONE (13:08)
[2017-11-20] MEDS ORDERED: IOHEXOL-350 100 ML VIAL IV ONE (13:08)
--- NOTE | 2017-11-20 13:22 | NUR ---
PT WENT FOR X-RAY, ACCOMPANIED BY ICU NURSE. PT HAD NO DISTRESS, DENIED PAIN, AND STABLE VITAL SIGNS. PT LEFT IN STABLE CONDITION.
[2017-11-20] MEDS: INSULIN REGULAR, HUMAN 100 UNIT/ML 3 ML VIAL SQ PRN ×3 (14:14→21:15)
[2017-11-20 16:00] VITALS: BP 110/54
--- NOTE | 2017-11-20 18:32 | NUR ---
MS CLOSING NOTES PT IS AWAKE, A & O X 3, BED IN LOWEST POSITION WITH SIDE RAILS 2X UP. RECENTLY JUST FINISHED HER HEMODIALYSIS IN KELL SHUNT WITH 1L OUT. NO SOB, NO RESPIRATORY DISTRESS, DENIES PAIN. PT HAD CTA PROCEDURE DONE IN AM. ACCORDING TO RESULTS, PT HAS ORDERS FOR CARDIAC CATH FOR FURTHER EVALUATION AT [facility] ON 11/22/17 AT 0900 AM . PT HAS INTACT AND PATENT TWO IV SITES IN R HAND #20 AND R ARM #16. ALL SAFETY MEASURES WERE TAKEN THROUGHOUT SHIFT, WILL ENDORSE TO NEXT SHIFT.
--- NOTE | 2017-11-20 19:36 | NUR ---
RN MS OPENING NOTES PATIENT RESTING IN BED. ALERT AND ORIENTED X4, VERBALLY RESPONSIVE, ABLE TO MAKE NEEDS KNOWN - MALIAN SPEAKER. BREATHING EVEN AND UNLABORED. NO SOB NOTED. NO COMPLAINTS OF PAIN OR DISCOMFORT. NO FACIAL GRIMACING. IV ON RIGHT HAND #20 AND RIGHT ARM #16 INTACT AND PATENT. LEFT UA SHUNT INTACT. SKIN DRY AND WARM TO TOUCH. ALL OTHER NEEDS ATTENDED TO. CALL LIGHT WITHIN REACH. BED ON LOWEST LOCKED POSITION. WILL CONTINUE TO MONITOR.
[2017-11-20 20:00] VITALS: BP 133/52
--- NOTE | 2017-11-21 06:00 | NUR ---
RN MS NOTES PATIENT REFUSED BLOOD DRAW. CHARGE NURSE MADE AWARE WITH INSTRUCTIONS TO TRY AT A LATER TIME.
[2017-11-21] MEDS: BLOOD SUGAR DIAGNOSTIC 1 EACH STRIP IN SCH ×4 (06:40→21:47)
[2017-11-21] MEDS: INSULIN REGULAR, HUMAN 100 UNIT/ML 3 ML VIAL SQ PRN ×4 (06:44→21:49)
--- NOTE | 2017-11-21 06:54 | NUR ---
RN MS CLOSING NOTES PATIENT RESTING IN BED. ALERT AND ORIENTED X4, VERBALLY RESPONSIVE, ABLE TO MAKE NEEDS KNOWN - EMIR[place]I SPEAKER. BREATHING EVEN AND UNLABORED. NO SOB NOTED. NO COMPLAINTS OF PAIN OR DISCOMFORT. NO FACIAL GRIMACING. IV ON RIGHT HAND #20 AND RIGHT ARM #16 INTACT AND PATENT. LEFT UA SHUNT INTACT. SKIN DRY AND WARM TO TOUCH. ALL OTHER NEEDS ATTENDED TO. CALL LIGHT WITHIN REACH. BED ON LOWEST LOCKED POSITION. WILL ENDORSE TO ONCOMING NURSE FOR CONTINUITY FOR CARE .
--- NOTE | 2017-11-21 07:40 | NUR ---
MS RN OPENING NOTES RECEIVED PT FROM NIGHTSHIFT NURSE IN STABLE CONDITION. PT IS A/O X3. NO SOB OR SIGNS OF DISTRESS NOTED. BREATHING IS EVEN AND UNLABORED. PT ON RA AND SATING WELL. SHE DENIES ANY CHEST PAIN AT THIS TIME. MULTIPLE IVS TO RIGHT FOREARM NOTED TO BE PATENT AND INTACT. LEFT UPPER ARM .AV SHUNT NOTED TO LEFT ARM. BRUIT AND THRILL PRESENT. SIGN PLACED ON PT'S DOOR INDICTING NO BPS, IVS, OR BLOOD DRAWS TO THAT EXTREMITY. BED IN LOW LOCKED POSITION, SIDE RAILS UP X2, CALL LIGHT WITHIN REACH. WILL CONTINUE TO MONITOR
--- NOTE | 2017-11-21 07:46 | NUR ---
MS RN NOTES: AM LABS PT REFUSING AM LAB DRAWS. PER PT "MY ARM IS SORE AND I DON'T WANT TO BE POKED ANYMORE. NO MORE! NO MORE!" PT EDUCATED ON THE SIGNIFICANCE OF BLOOD DRAWS HOWEVER CONTINUED TO REFUSE. WILL MAKE MD AWARE
[2017-11-21 08:00] VITALS: BP 123/69
[2017-11-21] MEDS: SEVELAMER CARBONATE 800 MG TABLET PO SCH ×3 (08:20→17:29)
[2017-11-21] MEDS: PANTOPRAZOLE 40 MG TABLET.DR PO SCH (08:20)
[2017-11-21] MEDS: PENTOXIFYLLINE 400 MG TABLET.SA PO SCH (08:21)
[2017-11-21] MEDS: ATORVASTATIN 10 MG TABLET PO SCH (08:21)
[2017-11-21] MEDS: AMLODIPINE BESYLATE 10 MG TABLET PO SCH (08:21)
[2017-11-21] MEDS: VIT B CMPLX 3/FA/VIT C/BIOTIN 1 TAB TABLET GT SCH (08:22)
[2017-11-21] MEDS: CARVEDILOL 12.5 MG TABLET PO SCH ×2 (08:22→17:00)
[2017-11-21] MEDS: ASPIRIN EC 81 MG TABLET.DR PO SCH (08:22)
[2017-11-21] MEDS: INSULIN GLARGINE, 100 UNIT/ML CARTRIDGE SQ SCH (08:23)
[2017-11-21 13:26] LABS: BASOPHILS % (AUTO) 0.4 % (0.0-2.0); EOSINOPHILS % (AUTO) 5.6 % (0.0-6.0); HEMATOCRIT 34 % (33-45); HEMOGLOBIN 11.3 g/dL (11.5-14.8); LYMPHOCYTES # (AUTO) 0.9 /CMM (0.8-4.8); LYMPHOCYTES % (AUTO) 18.6 % (20.0-44.0); MEAN CORPUSCULAR HEMOGLOBIN 33 PG (26.0-33.0); MEAN CORPUSCULAR HGB CONC 34 g/dl (31.0-36.0); MEAN CORPUSCULAR VOLUME 96 fL (82-100); MONOCYTES # (AUTO) 0.6 /CMM (0.1-1.30); NEUTROPHILS # (AUTO) 3.2 /CMM (1.8-8.9); NEUTROPHILS % (AUTO) 64.4 % (43.0-81.0); PLATELET COUNT (AUTO) 194 /CMM (150-450); RDW COEFFICIENT OF VARIATION 14.6 (11.5-15.0); RED BLOOD CELL COUNT(AUTO) 3.48 MIL/uL (4.0-5.2)
[2017-11-21 14:29] LABS: CALCIUM, SERUM 8.4 mg/dL (8.5-10.1); CREATININE 5.5 mg/dL (0.6-1.3); MAGNESIUM 2.2 mg/dL (1.8-2.4); PHOSPHORUS 4.3 mg/dL (2.5-4.9); POTASSIUM 3.9 mmol/L (3.5-5.1)
[2017-11-21 16:00] VITALS: BP 104/50
--- NOTE | 2017-11-21 18:38 | NUR ---
MS RN CLOSING NOTES PT REMAINS STABLE. ALL DUE MEDS GIVEN. VITALS STABLE POST HD. 1.5L REMOVED. IVS REMAINS PATENT AND INTACT. PT WILL BE NPO POST MIDNIGHT FOR CARDIAC CATH TOMORROW. BMP ORDERED FOR K+ LEVEL PRIOR TO D/C. SAFETY MEASURES REMAIN IN PLACE. WILL ENDORSE TO NIGHTSHIFT NURSE TO CARRY OUT TRANSFER AND JOO
--- NOTE | 2017-11-21 19:30 | NUR ---
RN MS OPENING NOTES PATIENT RESTING IN BED. ALERT AND ORIENTED X4, VERBALLY RESPONSIVE, ABLE TO MAKE NEEDS KNOWN - [place] SPEAKER. BREATHING EVEN AND UNLABORED. NO SOB NOTED. NO COMPLAINTS OF PAIN OR DISCOMFORT. NO FACIAL GRIMACING. IV ON RIGHT HAND #20 AND RIGHT ARM #16 INTACT AND PATENT. LEFT UA SHUNT INTACT. SKIN DRY AND WARM TO TOUCH. ALL OTHER NEEDS ATTENDED TO. CALL LIGHT WITHIN REACH. BED ON LOWEST LOCKED POSITION. WILL CONTINUE TO MONITOR.
[2017-11-21 20:00] VITALS: BP 132/54
[2017-11-22 04:50] LABS: CREATININE 4.4 mg/dL (0.6-1.3); POTASSIUM 3.7 mmol/L (3.5-5.1)
--- NOTE | 2017-11-22 06:20 | NUR ---
RN MS DISCHARGE NOTES PATIENT LEFT FOR TRANSFER TO [facility] FOR CARDIAC CATH- IN STABLE CONDITION. PATIENT WAS PICKED UP BY [facility] VIA GURNEY. PATIENT IS ALERT AND ORIENTED X4, VERBALLY RESPONSIVE. LAO SPEAKER. BREATHING EVEN AND UNLABORED. NO SOB NOTED. NO COMPLAINTS OF PAIN OR DISCOMFORT. PATIENT LEFT WITH IV ON RIGHT AC #16 INTACT AND PATENT. PATIENT SIGNED DISCHARGE PAPER WORKS WELL THE CONSENT FORMS FOR TRANSFER. ALL BELONGINGS ACCOUNTED FOR - PATIENT SIGNED BELONGINGS FORM. MOST RECENT VITALS: BP 132/64, HR 73, RR 18, 98.6F, 98% O2SAT ON RA. NO NEW SKIN ISSUES NOTED. KEPT CLEAN AND DRY. PATIENT WAS KEPT NPO AFTER MIDNIGHT FOR PROCEDURE. REPORT WAS GIVEN TO [facility] FROM SAME DAY SURGERY UNIT. DAUGHTER, LUKE BERGER, MADE AWARE OF TRANSFER.
[2017-11-22] MEDS: PANTOPRAZOLE 40 MG TABLET.DR PO SCH (07:30)
[2017-11-22] MEDS: BLOOD SUGAR DIAGNOSTIC 1 EACH STRIP IN SCH ×4 (07:30→22:19)
[2017-11-22] MEDS: ASPIRIN EC 81 MG TABLET.DR PO SCH (07:37)
[2017-11-22] MEDS: VIT B CMPLX 3/FA/VIT C/BIOTIN 1 TAB TABLET GT SCH (07:37)
[2017-11-22] MEDS: CARVEDILOL 12.5 MG TABLET PO SCH ×2 (07:37→17:35)
[2017-11-22] MEDS: SEVELAMER CARBONATE 800 MG TABLET PO SCH ×3 (07:37→17:34)
[2017-11-22] MEDS: ATORVASTATIN 10 MG TABLET PO SCH (07:38)
[2017-11-22] MEDS: AMLODIPINE BESYLATE 10 MG TABLET PO SCH (07:38)
[2017-11-22] MEDS: PENTOXIFYLLINE 400 MG TABLET.SA PO SCH (07:38)
[2017-11-22] MEDS: INSULIN GLARGINE, 100 UNIT/ML CARTRIDGE SQ SCH (07:38)
--- NOTE | 2017-11-22 07:39 | NUR ---
rn notes Patient transferred [facility] for cardiac catheterization.
[2017-11-22] MEDS ORDERED: LIDOCAINE 2% 20 ML MDV ONE (12:10)
[2017-11-22 14:40] VITALS: BP 135/66
--- NOTE | 2017-11-22 14:40 | NUR ---
RN NOTES PATIENT CAME BACK FROM [facility], V/S TAKEN STABLE BP 135/66, P-76, T-97.6, R-18, O2-95 ROM AIR. PATIENT HAS A IV ACCESS ON RIGHT AC AREA INTACT, HD SHUNT ON LEFT UPPER ARM INTACT. PATIENT STABLE, HAS NO C/O PAIN AT THIS TIME, ASSIST TO THE BATHROOM, OFFERED SOME SNACKS. CALL LIGHT WITHIN TO REACH. PATIENT FALL PRECAUTION. SAFETY PRECAUTION MAINTAINED ALL THE TIME. PATIENT TURN AND REPOSTION SELF IN THE BED. BED ALARM ON. CONTINUED MONITORING.
[2017-11-22] MEDS: INSULIN REGULAR, HUMAN 100 UNIT/ML 3 ML VIAL SQ PRN ×2 (17:46→22:21)
--- NOTE | 2017-11-22 17:48 | NUR ---
RN NOTES BS-256 MG/DL COVERAGE GIVEN, V/S STABLE, ADMINISTERED SCHEDULED MEDICATION, PATIENT EATING, NO C/O PAIN AT THIS TIME. CALL LIGHT WITHIN TO REACH. ENDORSED ONCOMING NURSE FOR PLAN OF CARE.
--- NOTE | 2017-11-22 19:00 | NUR ---
RN NOTES: RECEIVED PATIENT AWAKE ON SEMI FOWLERS POSITION,A/OX3, ROMANIAN SPEAKING, ABLE TO MAKE NEEDS KNOWN,RH G#20,FOR DIALYSIS TOMORROW, KELL-AV SHUNT WITH DRESSING INTACT,ON RA SPO2-95%, NO SOB NOTED,NO PAIN OR DISCOMFORT AT THIS TIME.FALL,SAFETY AND ASPIRATION PRECAUTION OBSERVED, KEPT ON CLOSE VISUAL CHECK.
[2017-11-22 20:00] VITALS: BP 128/50
--- NOTE | 2017-11-22 22:15 | NUR ---
RN NOTES: BLOOD SUGAR CHECKED-152, INSULIN GIVEN PER SCALE, WILL CONTINUE TO MONIOTR FOR SIGN OF HYPER/HYPOGLYCEMIA.
--- NOTE | 2017-11-23 02:22 | NUR ---
RN NOTES: CALL AND NEEDS ATTENDED,ASLEEP IN THE NIGHT,BED LOW AND LOCKED, CALL LIGHT WITHIN EASY REACH.
--- NOTE | 2017-11-23 06:23 | NUR ---
RN NOTES: REFUSED BLOOD TEST BUT AGREED TO CHECK BLOOD SUGAR WHMLYH=803, REQUEST TO GIVE INSULIN WITH FOOD, WILL CONTINUE TO MONITOR FOR SIGN OF HYPER/HYPOGLYCEMIA.
--- NOTE | 2017-11-23 06:41 | NUR ---
RN NOTES: ASLEEP, AWAITING FOR HER DIALYSIS,ENDORSED TO MORNING SHIFT FOR CONTINUITY OF CARE.KEPT CALL LIGHT WITHIN EASY REACH.
--- NOTE | 2017-11-23 07:05 | NUR ---
MS RN NOTES PATIENT IN BED ALERT ORIENTED X 4. NO ACUTE DISTRESS NOTED. BREATHING UNLABORED. NO SOB NOTED. NO S/SX OF HYPOGLYCEMIA OR HYPERGLYCEMIA. IV ACCESS PATENT AND INTACT, NO REDNESS OR SWELLING NOTED. KELL DIALYSIS ACCESS INTACT. SAFETY MEASURES IN PLACE. CALL LIGHT WITHIN REACH . WILL CONTINUE TO MONITOR ACCORDINGLY.
[2017-11-23 08:00] VITALS: BP 139/56
[2017-11-23] MEDS: BLOOD SUGAR DIAGNOSTIC 1 EACH STRIP IN SCH ×2 (08:17→11:57)
[2017-11-23] MEDS: PANTOPRAZOLE 40 MG TABLET.DR PO SCH (08:18)
[2017-11-23] MEDS: ASPIRIN EC 81 MG TABLET.DR PO SCH (08:18)
[2017-11-23] MEDS: VIT B CMPLX 3/FA/VIT C/BIOTIN 1 TAB TABLET GT SCH (08:18)
[2017-11-23] MEDS: SEVELAMER CARBONATE 800 MG TABLET PO SCH ×2 (08:18→12:02)
[2017-11-23] MEDS: PENTOXIFYLLINE 400 MG TABLET.SA PO SCH (08:18)
[2017-11-23] MEDS: AMLODIPINE BESYLATE 10 MG TABLET PO SCH ×2 (08:19→09:00)
[2017-11-23] MEDS: CARVEDILOL 12.5 MG TABLET PO SCH ×2 (08:20→09:00)
[2017-11-23] MEDS: ATORVASTATIN 10 MG TABLET PO SCH (08:22)
[2017-11-23] MEDS: INSULIN GLARGINE, 100 UNIT/ML CARTRIDGE SQ SCH (08:36)
--- NOTE | 2017-11-23 09:00 | NUR ---
MS RN NOTES PATIENT REFUSED INSULIN. HELD BLOOD PRESSURE MEDICATIONS, NORVASC AND COREG, DUE TO PATIENT WILL START DIALYSIS.
[2017-11-23 10:04] LABS: BASOPHILS % (AUTO) 0.2 % (0.0-2.0); EOSINOPHILS % (AUTO) 3.3 % (0.0-6.0); HEMATOCRIT 32 % (33-45); HEMOGLOBIN 10.9 g/dL (11.5-14.8); LYMPHOCYTES # (AUTO) 0.9 /CMM (0.8-4.8); LYMPHOCYTES % (AUTO) 15.9 % (20.0-44.0); MEAN CORPUSCULAR HEMOGLOBIN 32 PG (26.0-33.0); MEAN CORPUSCULAR HGB CONC 34 g/dl (31.0-36.0); MEAN CORPUSCULAR VOLUME 96 fL (82-100); MONOCYTES # (AUTO) 0.4 /CMM (0.1-1.30); MONOCYTES % (AUTO) 7.5 % (2.0-12.0); NEUTROPHILS # (AUTO) 4.3 /CMM (1.8-8.9); NEUTROPHILS % (AUTO) 73.1 % (43.0-81.0); PLATELET COUNT (AUTO) 211 /CMM (150-450); RDW COEFFICIENT OF VARIATION 13.9 (11.5-15.0); RED BLOOD CELL COUNT(AUTO) 3.37 MIL/uL (4.0-5.2); WHITE BLOOD COUNT (AUTO) 5.8 K/uL (4.3-11.0)
[2017-11-23 10:17] LABS: CALCIUM, SERUM 8.1 mg/dL (8.5-10.1); CREATININE 4.4 mg/dL (0.6-1.3); MAGNESIUM 1.8 mg/dL (1.8-2.4); PHOSPHORUS 2.7 mg/dL (2.5-4.9); POTASSIUM 4.2 mmol/L (3.5-5.1)
[2017-11-23] MEDS ORDERED: ATOR10TA PO (11:25)
[2017-11-23] MEDS ORDERED: CARV12.52 PO (11:25)
--- NOTE | 2017-11-23 11:26 | NUR ---
MS RN NOTES SEEN AND EVALUATED BY DR MYLES SAM WITH NEW ORDERS MADE. NOTED AND CARRIED OUT.
[2017-11-23] MEDS: INSULIN REGULAR, HUMAN 100 UNIT/ML 3 ML VIAL SQ PRN (11:58)
--- NOTE | 2017-11-23 14:00 | NUR ---
MS INSPECTOR HANDBAG FRAMES NOTES PATIENT DISCHARGE TO [facility] WITH STABLE VITAL SIGNS. NO ACUTE DISTRESS NOTED. BREATHING UNLABORED. NO SOB NOTED. DENIED ANY PAIN. IV ACCESS REMOVED, NO REDNESS OR SWELLING . NO BLEEDING NOTED. LEFT UPPER ARM HEMODIALYSIS ACCESS INTACT SECURED WITH DRESSING. CLEAN AND DRY. DISCHARGE INSTRUCTIONS GIVEN TO THE PATIENT, VERBALIZED UNDERSTANDING. REPORT GIVEN TO [facility] OF [facility]. ALL BELONGINGS ACCOUNTED FOR. PICKED UP VIA AMBULANCE IN A GURNEY ACCOMPANIED BY 2 EMT PERSONNEL IN STABLE CONDITION.
== END 2017-11-23 13:50 | DRG 302 ==
LOC: ER 18:20 → TELE 19:39 → MED 11-19 11:20
PROVIDERS: ADMIT Internal Medicine; ATTEND Internal Medicine Nephrology
PROC: 5A1D70Z Performance of Urinary Filtration, Intermittent, Less than 6 Hours Per Day (ICD-10-PCS; principal; 2017-11-20)
PROC: 5A1D70Z Performance of Urinary Filtration, Intermittent, Less than 6 Hours Per Day (ICD-10-PCS; 2017-11-20)
PROC: 5A1D70Z Performance of Urinary Filtration, Intermittent, Less than 6 Hours Per Day (ICD-10-PCS; 2017-11-20)
DX: I25.110 Atherosclerotic heart disease of native coronary artery with unstable angina pectoris (principal); N18.6 End stage renal disease; I12.0 Hypertensive chronic kidney disease with stage 5 chronic kidney disease or end stage renal disease; E11.9 Type 2 diabetes mellitus without complications; E78.5 Hyperlipidemia, unspecified; E11.22 Type 2 diabetes mellitus with diabetic chronic kidney disease; Z98.61 Coronary angioplasty status; D64.9 Anemia, unspecified; F03.90 Unspecified dementia, unspecified severity, without behavioral disturbance, psychotic disturbance, mood disturbance, and anxiety; Z79.82 Long term (current) use of aspirin; Z79.899 Other long term (current) drug therapy; Z99.2 Dependence on renal dialysis; Z88.1 Allergy status to other antibiotic agents; Z88.2 Allergy status to sulfonamides; Z79.4 Long term (current) use of insulin; M85.9 Disorder of bone density and structure, unspecified
CPT/HCPCS: 36415; 71045-TC; 75574; 80048-TC; 80061-TC; 80076-TC; 82962-TC; 83735-TC; 84100-TC; 84484-TC; 85025-TC; 85730-TC; 87081-TC; 90935-TC; 93307-TC; A4606; J1815; J3490; J7050; Q9967; Z7610

== ENCOUNTER 2018-01-06 19:42 | Emergency (ER) | payer MEDICARE, OTHER ==
[~2018-01-06] VITALS: Ht 165.1 cm; Wt 77.1 kg
[~2018-01-06 19:42] MED LIST changes: -AMLO10TA2 PO; +ATOR10TA PO; +PANT40TA2 PO
[2018-01-06 20:06] LABS: BASOPHILS # (AUTO) 0.2 /CMM (0.0-0.2); BASOPHILS % (AUTO) 2.7 % (0.0-2.0); EOSINOPHILS % (AUTO) 3.8 % (0.0-6.0); HEMATOCRIT 36 % (33-45); HEMOGLOBIN 12.1 g/dL (11.5-14.8); LYMPHOCYTES # (AUTO) 1.3 /CMM (0.8-4.8); LYMPHOCYTES % (AUTO) 16.7 % (20.0-44.0); MEAN CORPUSCULAR HEMOGLOBIN 32 PG (26.0-33.0); MEAN CORPUSCULAR HGB CONC 34 g/dl (31.0-36.0); MEAN CORPUSCULAR VOLUME 94 fL (82-100); MONOCYTES # (AUTO) 0.8 /CMM (0.1-1.30); MONOCYTES % (AUTO) 10.1 % (2.0-12.0); NEUTROPHILS # (AUTO) 5.5 /CMM (1.8-8.9); NEUTROPHILS % (AUTO) 66.7 % (43.0-81.0); PLATELET COUNT (AUTO) 305 /CMM (150-450); RDW COEFFICIENT OF VARIATION 12.7 (11.5-15.0); RED BLOOD CELL COUNT(AUTO) 3.85 MIL/uL (4.0-5.2); WHITE BLOOD COUNT (AUTO) 8.1 K/uL (4.3-11.0)
--- NOTE | 2018-01-06 20:10 | NUR ---
"WAS C/O FACIAL NUMBNESS AT 1500 DURING DIALYSIS"; NOW DENIES FACIAL NUMBNESS. PT C/O RT FACIAL PAIN 07/30. DENIES CP, SOB, DIZZINESS, N/V. WEAKNESS @ THIS TIME. PT SEEN & EVAL'D BY DR. LOPEZ. WILL CONT TO MONITOR.
[2018-01-06 20:17] LABS: CALCIUM, SERUM 9.7 mg/dL (8.5-10.1); CARBON DIOXIDE 32 mmol/L (21-32); CHLORIDE 98 mmol/L (98-107); CREATININE 3.8 mg/dL (0.6-1.3); GLUCOSE 98 mg/dL (74-106); SODIUM SERUM 133 mmol/L (136-145); UREA NITROGEN, BLOOD 25 mg/dL (7-18)
[2018-01-06 20:23] LABS: ALANINE AMINOTRANSFERASE 22 U/L (12-78); ALBUMIN 3.4 g/dL (3.4-5.0); ALKALINE PHOSPHATASE 188 U/L (46-116); ASPARTATE AMINOTRANSFERASE 18 U/L (15-37); BILIRUBIN,DIRECT 0.1 mg/dL (0.0-0.2); BILIRUBIN,TOTAL 0.6 mg/dL (0.2-1.0); TOTAL PROTEIN, SERUM 8.2 g/dL (6.4-8.2)
[2018-01-06 20:25] LABS: TROPONIN I < 0.017 ng/mL (0.00-0.056)
[2018-01-06 20:26] LABS: INR 0.95 (0.85-1.15)
--- NOTE | 2018-01-06 22:08 | NUR ---
[facility] ETA 2330; TRIP NUMBER [id number]
[2018-01-06 23:45] VITALS: BP 142/68
--- NOTE | 2018-01-06 23:47 | NUR ---
Patient discharged to home in stable condition. Written and verbal after care instructions given. Patient verbalizes understanding of instruction. PT EN ROUTE VIA AMBULANCE TO [facility]
== END 2018-01-06 23:48 ==
LOC: ER 19:44
DX: R20.2 Paresthesia of skin (principal); E11.22 Type 2 diabetes mellitus with diabetic chronic kidney disease; I12.0 Hypertensive chronic kidney disease with stage 5 chronic kidney disease or end stage renal disease; N18.6 End stage renal disease; K21.9 Gastro-esophageal reflux disease without esophagitis; R94.31 Abnormal electrocardiogram [ECG] [EKG]; E78.5 Hyperlipidemia, unspecified; E55.9 Vitamin D deficiency, unspecified; Z88.2 Allergy status to sulfonamides; Z88.1 Allergy status to other antibiotic agents; Z79.82 Long term (current) use of aspirin; Z79.4 Long term (current) use of insulin; Z99.2 Dependence on renal dialysis
CPT/HCPCS: 36415; 70450; 71045; 80048; 80076; 84484; 85025; 85730; 93005; 99285; A4606; Z7610

== ENCOUNTER 2018-01-14 19:13 | Emergency (ER) | payer MEDICARE, OTHER ==
[~2018-01-14] VITALS: Ht 167.6 cm; Wt 90.7 kg
--- NOTE | 2018-01-14 19:50 | NUR ---
PT PRESENTS TO ER FOR PSYCH EVAL FROM NURSING FACILITY HOWEVER PT IS A/OX4, DENIES SI/HI, AND REPORTS FEELING SAD BECAUSE IT IS THE ANNIVERSARY OF HER HUSBANDS AFTER BEING FOR 45 YEARS. DENIES PHYSICAL COMPLAINT. CALM, COOPERATIVE. IN ER BED 05.
[2018-01-14 20:28] LABS: BASOPHILS # (AUTO) 0.1 /CMM (0.0-0.2); BASOPHILS % (AUTO) 0.7 % (0.0-2.0); EOSINOPHILS % (AUTO) 3.3 % (0.0-6.0); HEMATOCRIT 35 % (33-45); HEMOGLOBIN 11.5 g/dL (11.5-14.8); LYMPHOCYTES # (AUTO) 1.6 /CMM (0.8-4.8); LYMPHOCYTES % (AUTO) 18.8 % (20.0-44.0); MEAN CORPUSCULAR HGB CONC 33 g/dl (31.0-36.0); MEAN CORPUSCULAR VOLUME 95 fL (82-100); MONOCYTES # (AUTO) 0.8 /CMM (0.1-1.30); MONOCYTES % (AUTO) 9.3 % (2.0-12.0); NEUTROPHILS # (AUTO) 5.6 /CMM (1.8-8.9); NEUTROPHILS % (AUTO) 67.9 % (43.0-81.0); PLATELET COUNT (AUTO) 266 /CMM (150-450); RDW COEFFICIENT OF VARIATION 12.9 (11.5-15.0); RED BLOOD CELL COUNT(AUTO) 3.65 MIL/uL (4.0-5.2); WHITE BLOOD COUNT (AUTO) 8.4 K/uL (4.3-11.0)
[2018-01-14 20:36] LABS: CALCIUM, SERUM 9.1 mg/dL (8.5-10.1); CARBON DIOXIDE 32 mmol/L (21-32); CHLORIDE 95 mmol/L (98-107); CREATININE 5.7 mg/dL (0.6-1.3); GLUCOSE 197 mg/dL (74-106); POTASSIUM 4.6 mmol/L (3.5-5.1); SODIUM SERUM 130 mmol/L (136-145); UREA NITROGEN, BLOOD 46 mg/dL (7-18)
[2018-01-14 20:46] LABS: ALANINE AMINOTRANSFERASE 21 U/L (12-78); ALBUMIN 3.2 g/dL (3.4-5.0); ALKALINE PHOSPHATASE 184 U/L (46-116); ASPARTATE AMINOTRANSFERASE 15 U/L (15-37); BILIRUBIN,DIRECT 0.1 mg/dL (0.0-0.2); BILIRUBIN,TOTAL 0.5 mg/dL (0.2-1.0); TOTAL PROTEIN, SERUM 7.6 g/dL (6.4-8.2)
[2018-01-14 20:49] LABS: ACETAMINOPHEN < 2 ug/ml (10-30); ALCOHOL, BLOOD < 3 mg/dL (0-0)
--- NOTE | 2018-01-14 20:52 | NUR ---
PAGED CRISIS FOR EVAL
[2018-01-14 21:07] LABS: SALICYLATE < 2.0 mg/dL (2.8-20.0)
--- NOTE | 2018-01-14 21:31 | NUR ---
PROVIDED WITH SANDWICH, JUICE, AND JELLO PER REQUEST
--- NOTE | 2018-01-14 21:32 | NUR ---
DAVIAN, BLADE BONER, AT BEDSIDE
--- NOTE | 2018-01-14 22:01 | NUR ---
REPORT GIVEN TO CHRISTINA ADAMES FOR TRANSFER BACK TO [facility]. RENÉE VINCENT SPOKE WITH DANIEL AT [facility].
--- NOTE | 2018-01-14 22:09 | NUR ---
Patient discharged to [facility] in stable condition. Written and verbal after care instructions given. Patient verbalizes understanding of instruction.
[2018-01-14 22:10] VITALS: BP 142/68
== END 2018-01-14 22:10 ==
LOC: ER 19:15
DX: F32.9 Major depressive disorder, single episode, unspecified (principal); E11.22 Type 2 diabetes mellitus with diabetic chronic kidney disease; I12.0 Hypertensive chronic kidney disease with stage 5 chronic kidney disease or end stage renal disease; N18.6 End stage renal disease; N17.9 Acute kidney failure, unspecified; K21.9 Gastro-esophageal reflux disease without esophagitis; I10 Essential (primary) hypertension; E78.5 Hyperlipidemia, unspecified; E55.9 Vitamin D deficiency, unspecified; Z99.2 Dependence on renal dialysis; Z88.2 Allergy status to sulfonamides; Z88.1 Allergy status to other antibiotic agents; Z79.4 Long term (current) use of insulin; Z79.82 Long term (current) use of aspirin
CPT/HCPCS: 36415; 80048; 80076; 80305; 80329; 85025; 99285; A4606; G0480 ×2; Z7610

== ENCOUNTER 2018-05-01 12:02 | Emergency (ER) | payer MEDICARE, OTHER ==
[~2018-05-01] VITALS: Ht 162.6 cm; Wt 75.3 kg
[~2018-05-01 12:02] MED LIST changes: -VIT1TABL44 GT; +VIT1TABL44 PO
--- NOTE | 2018-05-01 12:10 | NUR ---
PT BIB RA 60 AMS hypoglycemia , bld sugar low 20's given D50 and glucagon upon EMS arrival BS 355. pt is aaox4, not in respiratory distress, v/s stable, kept rested and comfortable, latest BS 172 dr. aragon aware.
--- NOTE | 2018-05-01 12:34 | NUR ---
LABS DRAWNED AND SENT TO LAB. AWATING RESULTS.
[2018-05-01 12:39] LABS: BASOPHILS # (AUTO) 0.1 /CMM (0.0-0.2); BASOPHILS % (AUTO) 0.5 % (0.0-2.0); EOSINOPHILS % (AUTO) 1.8 % (0.0-6.0); HEMATOCRIT 34 % (33-45); HEMOGLOBIN 11.5 g/dL (11.5-14.8); LYMPHOCYTES % (AUTO) 8.2 % (20.0-44.0); MEAN CORPUSCULAR HGB CONC 33 g/dl (31.0-36.0); MEAN CORPUSCULAR VOLUME 97 fL (82-100); MONOCYTES # (AUTO) 1.1 /CMM (0.1-1.30); MONOCYTES % (AUTO) 8.3 % (2.0-12.0); NEUTROPHILS # (AUTO) 10.3 /CMM (1.8-8.9); NEUTROPHILS % (AUTO) 81.2 % (43.0-81.0); PLATELET COUNT (AUTO) 253 /CMM (150-450); RED BLOOD CELL COUNT(AUTO) 3.56 MIL/uL (4.0-5.2); WHITE BLOOD COUNT (AUTO) 12.7 K/uL (4.3-11.0)
[2018-05-01] MEDS ORDERED: MOXI3DRO EACHEYE (12:39)
[2018-05-01] MEDS ORDERED: NPH,100V2 SQ ×2 (12:39)
[2018-05-01] MEDS ORDERED: ATOR10TA PO (12:39)
[2018-05-01] MEDS ORDERED: BLOO-668 IN (12:39)
[2018-05-01] MEDS ORDERED: PRED5DRO24 EACHEYE (12:39)
[2018-05-01] MEDS ORDERED: BROM1.7D9 LEFTEYE (12:39)
[2018-05-01] MEDS ORDERED: AMIN30LI2 PO (12:39)
[2018-05-01] MEDS ORDERED: SERT25TA PO (12:39)
[2018-05-01] MEDS ORDERED: INSU100V3 SQ (12:39)
[2018-05-01 13:02] LABS: POTASSIUM 3.5 mmol/L (3.5-5.1)
[2018-05-01 13:08] LABS: ALBUMIN 3.1 g/dL (3.4-5.0)
[2018-05-01 13:09] LABS: CALCIUM, SERUM 9.2 mg/dL (8.5-10.1); CREATININE 4.7 mg/dL (0.6-1.3)
--- NOTE | 2018-05-01 13:11 | NUR ---
PT REFUSED IV INSERTION, DR. LOPEZ AWARE.
[2018-05-01 13:14] LABS: BILIRUBIN,DIRECT 0.1 mg/dL (0.0-0.2); BILIRUBIN,TOTAL 0.5 mg/dL (0.2-1.0); TOTAL PROTEIN, SERUM 7.6 g/dL (6.4-8.2)
--- NOTE | 2018-05-01 13:46 | NUR ---
LOLY WILL SALES AND SERVICE ENGINEER PT ETA [id number] TRIP [id number]
--- NOTE | 2018-05-01 14:59 | NUR ---
Patient discharged to [address] [place] [address] FACILITY in stable condition. Written and verbal after care instructions given. Patient verbalizes understanding of instruction.
[2018-05-01 15:00] VITALS: BP 128/60
== END 2018-05-01 15:02 | disposition short-term general hospital (02) ==
LOC: ER 12:05
DX: E11.649 Type 2 diabetes mellitus with hypoglycemia without coma (principal); E11.22 Type 2 diabetes mellitus with diabetic chronic kidney disease; I12.0 Hypertensive chronic kidney disease with stage 5 chronic kidney disease or end stage renal disease; N18.6 End stage renal disease; F03.90 Unspecified dementia, unspecified severity, without behavioral disturbance, psychotic disturbance, mood disturbance, and anxiety; E78.5 Hyperlipidemia, unspecified; G62.9 Polyneuropathy, unspecified; E55.9 Vitamin D deficiency, unspecified; Z99.2 Dependence on renal dialysis; Z88.2 Allergy status to sulfonamides; Z88.1 Allergy status to other antibiotic agents; Z79.4 Long term (current) use of insulin; Z79.82 Long term (current) use of aspirin
CPT/HCPCS: 36415; 71045; 80048; 80076; 82962 ×2; 84484; 85025; 93005; 99285; A4606